=== PATIENT | female | born 1940 | race Caucasian/White ===

== ENCOUNTER 2019-03-09 13:59 | Inpatient (IN) | payer OTHER ==
--- OUTSIDE RECORDS SUMMARY | 2019-03-09 14:01 | XMS REPORT | Clinical Summary ---
:1940 Author Organization [facility] Address [address] [place] [address] Care Team Providers Name Role Phone Unavailable Primary Care Provider Unavailable Allergies Not on File Medications Not on file Active Problems Not on file Social History Tobacco Use Types Packs/Day Years Used Date Never Assessed Sex Assigned at Date Recorded Not on file Job Start Date Occupation Industry Not on file Not on file Not on file Travel History Travel Start Travel End No recent travel history available. Last Filed Vital Signs Not on file Plan of Treatment Not on file Results Not on fileafter 03/08/2018
--- OUTSIDE RECORDS SUMMARY | 2019-03-09 14:04 | XMS REPORT | Continuity of Care Document ---
:1940 Author Organization [facility] [employer] Care Team Providers Name Role Phone Street [employer] Unavailable Unavailable Problems Problem Status Onset Classification Date Comments Source Date Reported SYNCOPE, POSSIBLE Active 10/29/[address] PNEUMONIA, HYPOXIA Active 10/29/[address] Sepsis, 07/29/20 12/03/2018 [facility] unspecified 18 organism LEFT LUNG Active 05/09/20 [facility] COLLAPSE, PNA, 18 [place] CACHEXIA Pneumonia, 12/03/2018 [facility] unspecified organism Pneumonitis due to 12/03/2018 [facility] inhalation of food and vomit Acute respiratory 12/03/2018 [facility] failure with hypoxia Acute respiratory 12/03/2018 [facility] failure with hypercapnia Unspecified severe 12/03/2018 [facility] protein-calorie malnutrition Pneumonia due to 12/03/2018 [facility] Streptococcus pneumoniae Encounter for 12/03/2018 [facility] immunization Do not resuscitate 12/03/2018 [facility] Encounter for 12/03/2018 [facility] palliative care Chronic 12/03/2018 [facility] obstructive pulmonary disease with acute lower respiratory infection Metabolic 12/03/2018 [facility] encephalopathy Chronic 12/03/2018 [facility] obstructive pulmonary disease with exacerbation Cachexia 12/03/2018 [facility] Body mass index 12/03/2018 [facility] 19.9 or less, adult Hyperosmolality 12/03/2018 [facility] and hypernatremia Essential 12/03/2018 [facility] hypertension Other chronic pain 12/03/2018 [facility] Anxiety disorder, 12/03/2018 [facility] unspecified Hypomagnesemia 12/03/2018 [facility] Thrombocytopenia, 12/03/2018 [facility] unspecified Anemia, 12/03/2018 [facility] unspecified Hypokalemia 12/03/2018 [facility] Vascular dementia 12/03/2018 [facility] without behavioral disturbance Alzheimer's 12/03/2018 [facility] disease, unspecified Other diseases of 12/03/2018 [facility] bronchus, not elsewhere classified Dysphasia 12/03/2018 [facility] Adult failure to 12/03/2018 [facility] thrive Personal history 12/03/2018 [facility] of transient ischemic attack , and cerebral infarction without residual deficits Personal history 12/03/2018 [facility] of nicotine dependence History of falling 12/03/2018 [facility] Patient's other 12/03/2018 [facility] noncompliance with medication regimen Alzheimer disease Active Problem 12/03/2018 [facility] Atypical pneumonia Active Problem 12/03/2018 [facility] 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 Center,[facility] Chronic hypoxemic Active Problem 12/03/2018 [facility] respiratory Medical failure Center,[facility] COPD without Active Problem 12/03/2018 [facility] exacerbation Medical [place],[facility] Left arm DVT Active Problem 12/03/2018 [facility] Supplemental Active Problem 12/03/2018 [facility] oxygen dependent Medical Center,[facility] On anticoagulant Active Problem 12/03/2018 [facility] therapy [facility] Fall from bed Active Problem 12/03/2018 [facility] H/O Clostridium Active Problem 12/03/2018 [facility] difficile Medical infection Center,[facility] Hx MRSA infection Active Problem 12/03/2018 [facility] S/P peripheral Active Problem 12/03/2018 [facility] artery angioplasty Medical Center,[facility] HTN (Confirmed) Active Problem 12/03/2018 [facility] Normocytic anemia Active Problem 12/03/2018 [facility] Peripheral Active Problem 12/03/2018 [facility] vascular disease Medical Center,[facility] Severe Active Problem 12/03/2018 [facility] protein-calorie Medical malnutrition Center,[facility] PNEUMONIA, Active [facility] UNSPECIFIED [place], ORGANISM [facility] HYPOXEMIA Active [facility] Medications Medication Details Route Status Patient Ordering Order Source Instructions Provider Date Doxycycline 100 mg=1 tab, Active 10/29/ [place] Monohydrate 100 PO, Q12H, X 7 2019 Medical MG Oral Tablet day, # 14 tab, Center 0 Refill(s), other Sodium Chloride 250 mL, Rate: Inactive 10/29/ [place] 0.9% (titrate) To prime line 2019 Medical 250 mL and flush Center remaining blood products., Dosing Weight 54.091, kg, Route: IV, Total Volume: 250, Start Date: 10/29/18 11:40:00 [employer] CUTTER APPRENTICE, Duration: 1 day, Stop date: 10/30/18 11:39:00 [employer] CUTTER APPRENTICE, Replace Every: 24 hr NIFEdipine 60 mg 60 mg, 1 tab, Inactive [facility] oral tablet, Route: PO, 2019 Medical extended release Drug form: [place] ERTAB, Daily, Dosing Weight 54.4, kg, Start date: 10/29/18 9:00:00 [employer] CUT[employer] APPRENTICE, Duration: 30 day, Stop date: 11/27/18 9:00:00 CDT, ..Notes: (Same as: Adalat CC, Procardia XL) Give on empty stomach. Take 1 hour before or 2 hours after meal; "Avoid grapefruit and grapefruit juice". Do not crush Nystatin 100 1 appl, Route: Inactive [facility] UNT/MG Topical TOP, TID, Drug 2019 Medical Powder form: PWDR, [place] Start date: 10/29/18 9:00:00 MEAT CUTTER APPRENTICE, Duration: 30 day, Stop date: 11/27/18 17:00:00 CDTNotes: (Same as:Mycostatin, Nilstat) For external use only. ascorbic acid 500 mg, 1 tab, Inactive 10/29[facility] Route: PO, 2019 Medical Drug form: [place] TAB, BID, Dosing Weight 54.4, kg, Start date: 10/29/18 9:00:00 MEAT CUTTER APPRENTICE, Duration: 30 day, Stop date: 11/27/18 17:00:00 CDTNotes: (Same as: Vitamin C) Eliquis 5 mg, 1 tab, Inactive 10/29[facility] Route: PO, 2019 Medical Drug form: [place] TAB, BID, Dosing Weight 54.4, kg, Start date: 10/29/18 9:00:00 MEAT CUTTER APPRENTICE, Duration: 30 day, Stop date: 11/27/18 17:00:00 CDTNotes: Same as: Eliquis Doxycycline 100 mg, Route: Inactive [facility] IVPB, [id number], 2019 Medical Dosing Weight [place] 54.091, kg, Start date: 10/29/18 8:00:00 MEAT CUTTER APPRENTICE, Duration: 30 day, Stop date: 11/27/18 20:00:00 CDTNotes: (Same as: Vibramycin) Albuterol 0.833 3 mL, Route: Inactive [facility] MG/ML / INHALATION, 2019 Medical Ipratropium Drug Form: [place] 0.167 SOLN, Dosing MG/ML Inhalant Weight 54.4, Solution kg, RQID, [DuoNeb] Start date: 10/29/18 7:00:00 MEAT CUTTER APPRENTICE, Duration: 30 day, Stop date: 11/27/18 19:00:00 CDTNotes: (Same as: Duoneb) Lasix 40 mg, 4 mL, No Longer [facility] Route: IVP, Active 2019 Medical Drug form: [place] INJ, ONCE, Dosing Weight 54.4, kg, Priority: NOW, Start date: 10/28/18 23:38:00 ME[employer] CUTTER APPRENTICE, Stop date: 10/28/18 23:38:00 CSTNotes: (Same as: Lasix) MEDICATION WASTE Product Size: 40 mg Product Wasted: ___ mg pneumococcal 0.5 mL, Route: No Longer [facility] capsular IM, Drug Form: Active 2019 Medical polysaccharide INJ, ONCALL, [place] type 1 vaccine / Start date: pneumococcal 10/28/18 capsular 22:15:37 [employer] APPRENTICE, polysaccharide Duration: 1 type 10A vaccine doses or / pneumococcal timesNotes: capsular (Same as: polysaccharide Pneumovax 23) type 11A vaccine Refrigerate / pneumococcal capsular polysaccharide type 12F vaccine / pneumococcal capsular polysacchar Furosemide 20 MG 20 mg=1 tab, Active [facility] Oral Tablet PO, BID, # 30 2019 Medical [Lasix] tab, 0 Center Refill(s) apixaban 5 MG 5 mg, PO, BID, Active [facility] Oral Tablet 0 Refill(s) 2019 Medical [Eliquis] [place] zinc sulfate 220 220 mg=1 tab, Active [place] mg oral tablet PO, BID, # 100 2019 Medical tab, 0 Center Refill(s) Ergocalciferol 50,000 Active [facility] [address] UNT Oral IntlUnit=1 2019 Medical Capsule cap, PO, QSat, Center 0 Refill(s) ascorbic acid 500 mg=1 tab, Active [place] 500 mg oral PO, BID, # 30 2019 Medical tablet tab, 0 Center Refill(s) Nystatin 100 1 appl, TOP, Active [place] UNT/MG Topical TID, # 15 gm, 2019 Medical Powder 0 Refill(s) [place] Albuterol 0.833 3 ml, Active [place] MG/ML / INHALATION, 2019 Medical Ipratropium QID, # 30 ea, Center [place] 0.167 0 Refill(s) MG/ML Inhalant Solution [DuoNeb] Nifedipine 20 MG 20 mg=1 cap, Active [place] Oral Capsule PO, TID, # 90 2019 Medical cap, 0 Center Refill(s) Acetaminophen 650 mg, 2 tab, No Longer [place] Route: PO, Active 2019 Medical Drug form: Center TAB, Q4H, Dosing Weight 54.4, kg, PRN For Temp > 100.4 F, Start date: 10/28/18 20:28:00 ME[employer] CUTTER APPRENTICE, Duration: 30 day, Stop date: 11/27/18 20:27:00 CDTNotes: Do not exceed 4 gm/day. (Same as: Tylenol) Dextrose 50% 12.5 gm, 25 No Longer [place] Syringe mL, Route: Active 2019 Medical IVP, Drug Center Form: INJ, Dosing Weight 54.4, kg, PRN, PRN Blood Glucose Results, Start date: 10/28/18 20:28:00 ME[employer] CUTTER APPRENTICE, Duration: 30 day, Stop date: 11/27/18 21:27:00 CDT Glucagon 1 mg, Route: No Longer [place] IM, Drug form: Active 2019 Medical PDR/INJ, PRN, [place] Dosing Weight 54.4, kg, PRN Blood Glucose Results, Start date: 10/28/18 20:28:00 ME[employer] CUTTER APPRENTICE, Duration: 30 day, Stop date: 11/27/18 21:27:00 CDT iodixanol 60 mL, Route: Inactive [place] IVP, Drug 2019 Medical Form: SOLN, [place] Dosing Weight 54.4, kg, ONCALL, STAT, Start date: 10/28/18 17:23:00 ME[employer] CUTTER APPRENTICE, Duration: 1 doses or times, Dose=2.2ml/kg, Max [id number] -- "To be infused by Radiology Staff ONLY" cefepime 1 gm, Route: Inactive [facility] IVPB, ONCE, 2019 Medical Dosing Weight Center 54.4, kg, Priority: STAT, Start date: 10/28/18 14:56:00 MEAT CUTTER APPRENTICE, Stop date: 10/28/18 14:56:00 MEAT CUTTER APPRENTICE, ABX Indication: PneumoniaNotes : (Same As: Maxipime) MEDICATION WASTE Product Size: 1000 mg Product Wasted: 0 mg Vancomycin 1.25 gm, Inactive [facility] Route: IVPB, 2018 Medical ONCE, Dosing Center Weight 54.4, kg, Priority: STAT, Start date: 10/28/18 14:55:00 MEAT CUTTER APPRENTICE, Stop date: 10/28/18 14:55:00 MEAT CUTTER APPRENTICE, ABX Indication: PneumoniaNotes : TIME CRITICAL MEDICATION (Same As: Vancocin) Infusion rate 2001 mg: infuse over 2.5 hours For adult patients only: Round to nearest 250 mg per Medical Staff approval MEDICATION WASTE Product Size: 1000 mg Product Wasted: 0 mg NS (Bolus) IV 1,000 mL, Inactive [facility] 1,000 ml/hr, 2018 Medical Infuse Over: 1 Center hr, Route: IV, 1,000, Drug form: INJ, ONCE, Priority: STAT, Dosing Weight 54.4 kg, Start date: 10/28/18 14:52:00 MEAT CUTTER APPRENTICE, Stop date: 10/28/18 14:52:00 MEAT CUTTER APPRENTICE Magnesium Oxide 800 mg, 2 tab, Inactive Route: PO, 2017 [place] Drug form: TAB, ONCE, Dosing Weight 34.6, kg, Start date: 05/16/18 16:15:00 CDT, Stop date: 05/16/18 16:15:00 CDTNotes: (Same as: Mag-Ox 400) Magnesium oxide [id number] elemental magnesium Dose=____mg magnesium oxide (___mg elemental magnesium) Magnesium 2 gm, 50 mL, Inactive Sulfate Route: IVPB, 2017 [place] Drug form: INJ, Q2H, Dosing Weight 34.6, kg, Total dose=4 gm, Start date: 05/16/18 16:00:00 CDT, Duration: 2 doses or times, Stop date: 05/16/18 18:00:00 CDTNotes: WASTE: F/P - Sink; E - Municipal Trash Bin Potassium 20 mEq, 15 mL, Inactive Chloride 1.33 Route: PO, 2017 [place] MEQ/ML Oral Drug form: Solution LIQ, ONCE, Dosing Weight 34.6, kg, Start date: 05/16/18 15:19:00 CDT, Stop date: 05/16/18 15:19:00 CDTNotes: (Same as: Potassium Chloride) Ceftriaxone 1 gm, Route: No Longer IV, [id number], Active 2017 [place] Dosing Weight 34.6, kg, Start date: 05/15/18 15:00:00 CDT, Duration: 7 day, Stop date: 05/21/18 15:00:00 CDT, ABX Indication: PneumoniaNotes : (Same As: Rocephin). Use with 100 mL NS and infuse over 30 min MEDICATION WASTE Product Size: 1000 mg Product Wasted: ___ mg Kaopectate 524 mg, 2 tab, No Longer Reformulated Aug Route: NG, Active 2017 [place] 2005 Drug Form: CHEWTAB, Dosing Weight 34.6, kg, QID, PRN Diarrhea, Start date: 05/15/18 12:07:00 CDT, Duration: 30 day, Stop date: 06/14/18 12:06:00 CDTNotes: (Same As: Pepto Bismol) Acetaminophen 10 ml, Route: No Longer 33.3 MG/ML / NG, Drug Form: Active 2017 [place] Hydrocodone SOLN, Dosing Bitartrate 0.5 Weight 34.6, MG/ML Oral kg, Q4H, PRN Solution Pain Score 4-6, Start date: 05/15/18 10:48:00 CDT, Duration: 30 day, Stop date: 06/14/18 10:47:00 CDTNotes: Do not exceed 4gm/day of acetaminophen. (Same as: [place] 325/7.5) Flagyl 500 mg, 1 tab, No Longer Route: PO, Active 2017 [place] Drug form: TAB, ABXQ8H, Start date: 05/14/18 16:00:00 CDT, Duration: 2 day, Stop date: 05/16/18 8:00:00 CDT, ABX Indication: Intra-abdomina l InfectionNotes : (Same as: Flagyl) Take with food/ avoid alcohol carvedilol 25 mg, 2 tab, No Longer Route: PO, Active 2017 [place] Drug form: TAB, Q12H, Dosing Weight 34.6, kg, Start date: 05/13/18 9:00:00 CDT, Duration: 30 day, Stop date: 06/11/18 21:00:00 CDTNotes: Give with food. (Same As: Coreg) Amlodipine 10 mg, 2 tab, No Longer Route: PO, Active 2017 [place] Drug form: TAB, Daily, Dosing Weight 34.6, kg, Start date: 05/13/18 9:00:00 CDT, Duration: 30 day, Stop date: 06/11/18 9:00:00 CDTNotes: (Same as: Norvasc) carvedilol 6.25 mg, 2 No Longer tab, Route: Active 2017 [place] PO, Drug form: TAB, Q12H, Dosing Weight 34.6, kg, Start date: 05/12/18 19:00:00 CDT, Duration: 30 day, Stop date: 06/11/18 9:00:00 CDTNotes: Give with food. (Same As: Coreg) Nicardipine 40 mg, 200 mL, No Longer Rate: Titrate, Active 2017 [place] Start Dose: 5 mg/hr, Titration: 2.5 mg/hr every 15 minutes, Goal(s): SBP 100-150, Max Dose: 15 mg/hr, Route: IV, Dosing Weight 34.6 kg, Total Volume: 200, Start date: 05/12/18 10:32:00 CDT, Duration: 30 day, Stop date: ...Notes: Same as: Cardene Concentration: (0.2 mg /1 ml ) Tylenol 650 mg, 1 No Longer supp, Route: Active 2017 [place], Drug form: SUPP, Q6H, Dosing Weight 34.6, kg, PRN For Temp > 100.4 F, Start date: 05/11/18 16:33:00 CDT, Duration: 30 day, Stop date: 06/10/18 16:32:00 CDTNotes: Max acetaminophen= 4000 mg/day (4 gm/day). (Same as: Tylenol) cefepime 1 gm, Route: No Longer IVPB, [id number], Active 2017 [place] Dosing Weight 34.6, kg, (CrCl 10 - 29 ml/min), Start date: 05/11/18 2:00:00 CDT, Duration: 6 day, Stop date: 05/16/18 2:00:00 CDT, ABX Indication: PneumoniaNotes : (Same As: Maxipime) MEDICATION WASTE Product Size: 1000 mg Product Wasted: ___ mg Dextrose 5% with 1,000 mL, No Longer 0.45% NaCl IV Rate: 100 Active 2017 [place] 1,000 mL ml/hr, Infuse over: 10 hr, Route: IV, Dosing Weight 34.6 kg, Total Volume: 1,000, Start date: 05/10/18 21:30:00 CDT, Duration: 30 day, Stop date: 06/09/18 21:29:00 CDT, 1.22, m2 esmolol 2,500 mg, 250 No Longer mL, Rate: Active 2017 [place] Titrate, Start Dose: 50 microgram/kg/m in, Titration: 50 microgram/kg/m in every 15 minutes, Goal(s): Maintain SBP between 100-150 mmHg, Max Dose: 300 microgram/kg/m in, Route: IV, Dosing Weight 34.6 kg, Total Volume: 250, Start d...Notes: (Same as: Brevibloc) 10 mg/ml conc. Vancomycin 1 ea, Route: No Longer MISC, Drug Active 2017 [place] form: INJ, ONCALL, Dosing Weight 34.6, kg, Start date: 05/10/18 9:00:00 CDT, Duration: 7 day, Stop date: 05/17/18 8:59:00 CDT, Pharmacy to dose, ABX Indication: PneumoniaNotes : TIME CRITICAL MEDICATION (Same As: Vancocin) Infusion rate 2001 mg: infuse over 2.5 hours For adult patients only: Round to nearest 250 mg per Medical Staff approval MEDICATION WASTE Product Size: 1000 mg Product Wasted: ___ mg Labetalol 10 mg, 2 mL, Inactive Route: IV, 2017 [place] Drug form: INJ, ONCE, Dosing Weight 34.6, kg, Start date: 05/10/18 8:35:00 CDT, Stop date: 05/10/18 8:35:00 CDTNotes: (Same as: Normodyne, Trandate) Push over 2 minutes Give bolus over 2-3 minutes. Vancomycin 750 mg, Route: No Longer IVPB, [id number], Active 2017 [place] Dosing Weight 34.6, kg, Start date: 05/10/18 4:00:00 CDT, Duration: 7 day, Stop date: 05/17/18 4:00:00 CDT, ABX Indication: PneumoniaNotes : TIME CRITICAL MEDICATION (Same As: Vancocin) Infusion rate 2001 mg: infuse over 2.5 hours For adult patients only: Round to nearest 250 mg per Medical Staff approval MEDICATION WASTE Product Size: 1000 mg Product Wasted: ___ mg Flagyl 500 mg, 100 No Longer mL, Route: Active 2017 [place] IVPB, Drug form: INJ, ABXQ8H, Dosing Weight 34.6, kg, Start date: 05/10/18 0:00:00 CDT, Duration: 7 day, Stop date: 05/16/18 16:00:00 CDT, ABX Indication: Intra-abdomina l InfectionNotes : (Same as: Flagyl) Avoid alcohol. cefepime 1 gm, Route: Inactive IVPB, ABXQ8H, 2018 [place] Dosing Weight 34.6, kg, (CrCl >/=50 ml/min), Start date: 05/10/18 0:00:00 CDT, Duration: 7 day, Stop date: 05/16/18 16:00:00 CDT, ABX Indication: PneumoniaNotes : (Same As: Maxipime) MEDICATION WASTE Product Size: 1000 mg Product Wasted: ___ mg heparin 5,000 unit, 1 No Longer mL, Route: Active 2018 [place] SUB-Q, Drug form: INJ, Q8H, Dosing Weight 34.6, kg, Start date: 05/10/18 0:00:00 CDT, Stop date: 06/08/18 16:00:00 CDTNotes: porcine heparin Potassium 20 mEq, 15 mL, No Longer Chloride Route: [place], Active 2018 [place] Drug form: LIQ, PRN, Dosing Weight 34.6, kg, PRN Abnormal Lab Result, Start date: 05/09/18 23:48:00 CDT, Duration: 30 day, Stop date: 06/08/18 23:47:00 CDT, FOR ICU USE ONLYNotes: (Same as: Potassium Chloride) Calcium 1,000 mg, 2 No Longer Carbonate 500 MG tab, Route: Active 2018 [place] Chewable Tablet PO, Drug form: CHEWTAB, PRN, Dosing Weight 34.6, kg, PRN Abnormal Lab Result, FOR ICU USE ONLY, Start date: 05/09/18 23:48:00 CDT, Duration: 30 day, Stop date: 06/08/18 23:47:00 CDTNotes: (Same As: Tums) Calcium Carbonate 500 ur=265 mg elemental calcium Dose= mg calcium carbonate ( mg elemental calcium) potassium 30 mmol, 10 No Longer phosphate mL, Route: Active 2018 [place] IVPB, PRN, Dosing Weight 34.6, kg, PRN Abnormal Lab Result, Start date: 05/09/18 23:48:00 CDT, Duration: 30 day, Stop date: 06/08/18 23:47:00 CDT, FOR ICU USE ONLYNotes: (Same as: K Phosphate.) Do not infuse phosphorous concurrently in the same line as TPN or IVF that contains calcium. For double lumen central lines, phosphorous may be infused in a separate lumen from TPN. 1 mMol phoshate has 1.47 mEq potassium Infuse over 4 hours sodium phosphate 45 mmol, 15 No Longer mL, Route: Active 2018 [place] IVPB, PRN, Dosing Weight 34.6, kg, PRN Abnormal Lab Result, Start date: 05/09/18 23:48:00 CDT, Duration: 30 day, Stop date: 06/08/18 23:47:00 CDT, FOR ICU USE ONLYNotes: Infuse over 4 hour. Do not infuse phosphorous concurrently in the same line as TPN or IVF that contains calcium. For double lumen central lines, phosphorous may be infused in a separate lumen from TPN. Magnesium Oxide 800 mg, 2 tab, No Longer Route: PO, Active 2018 [place] Drug form: TAB, PRN, Dosing Weight 34.6, kg, PRN Abnormal Lab Result, FOR ICU USE ONLY, Start date: 05/09/18 23:48:00 CDT, Duration: 30 day, Stop date: 06/08/18 23:47:00 CDTNotes: (Same as: Mag-Ox 400) Magnesium oxide [id number] elemental magnesium Dose=____mg magnesium oxide (___mg elemental magnesium) Magnesium 2 gm, 50 mL, No Longer Sulfate Route: IVPB, Active 2018 [place] Drug form: INJ, PRN, Dosing Weight 34.6, kg, PRN Abnormal Lab Result, Start date: 05/09/18 23:48:00 CDT, Duration: 30 day, Stop date: 06/08/18 23:47:00 CDT, FOR ICU USE ONLYNotes: WASTE: F/P - Sink; E - Municipal Trash Bin potassium 2 pkt, Route: No Longer phosphate-sodium PO, Drug Form: Active 2018 [place] phosphate 250 PDR/REC, mg-280 mg-160 mg Dosing Weight oral powder for 34.6, kg, PRN, reconstitution PRN Abnormal Lab Result, FOR ICU USE ONLY, Start date: 05/09/18 23:48:00 CDT, Duration: 30 day, Stop date: 06/08/18 23:47:00 CDTNotes: (Same as: Phos-NaK) Each 1.5 gm pkt has 250mg phosphorous. Mix w/2.5oz water and stir. Calcium 1 gm, 10 mL, No Longer Gluconate Route: IVPB, Active 2018 [place] PRN, Dosing Weight 34.6, kg, PRN Abnormal Lab Result, Start date: 05/09/18 23:48:00 CDT, Duration: 30 day, Stop date: 06/08/18 23:47:00 CDT, FOR ICU USE ONLYNotes: WASTE: F/P - Sink; E - Municipal Trash Bin Saline Flush 10 ml, Route: No Longer 0.9% IVP, Drug Active 2017 [place] Form: INJ, Dosing Weight 34.6, kg, PRN, PRN Line Flush, Start date: 05/09/18 23:42:00 CDT, Duration: 30 day, Stop date: 06/08/18 23:41:00 CDTNotes: (Same as: BD Posiflush) Lactated [place]ers 1,000 mL, No Longer IV 1,000 mL Rate: 75 Active 2017 [place] ml/hr, Infuse over: 13.3 hr, Route: IV, Dosing Weight 34.6 kg, Total Volume: 1,000, Start date: 05/09/18 23:42:00 CDT, Duration: 30 day, Stop date: 06/08/18 23:41:00 CDT, 1.22, m2 Acetaminophen 650 mg, 2 tab, No Longer Route: PO, Active 2017 [place] Drug form: TAB, Q6H, Dosing Weight 34.6, kg, PRN Pain 1-3/Temp > 100.4 F, Start date: 05/09/18 23:42:00 CDT, Duration: 30 day, Stop date: 06/08/18 23:41:00 CDTNotes: Do not exceed 4 gm/day. (Same as: Tylenol) Ondansetron 4 mg, 2 mL, No Longer Route: IVP, Active 2017 [place] Drug form: INJ, Q6H, Dosing Weight 34.6, kg, PRN Nausea & Vomiting, Start date: 05/09/18 23:42:00 CDT, Duration: 30 day, Stop date: 06/08/18 23:41:00 CDTNotes: (Same as: Zofran) MEDICATION WASTE Product Size: 4 mg Product Wasted: ___ mg Morphine 2 mg, 1 mL, No Longer Route: IVP, Active 2017 [place] Drug form: SOLN, Q4H, Dosing Weight 34.6, kg, PRN Pain Score 7-10, Start date: 05/09/18 23:42:00 CDT, Duration: 30 day, Stop date: 06/08/18 23:41:00 CDT Vancomycin 1 gm, IV, No Longer Q24H, 0 Active 2017 [place] Refill(s) Acetaminophen 1 tab, PO, No Longer 300 MG / Codeine Q6H, PRN Pain, Active 2017 [place] Phosphate 30 MG 0 Refill(s) Oral Tablet [Tylenol with Codeine #3] Azithromycin 500 mg, IV, No Longer Daily, 0 Active 2017 [place] Refill(s) Rocephin 1 gm, IV, No Longer Daily, 0 Active 2017 [place] Refill(s) donepezil 5 mg 10 mg=2 tab, No Longer oral tablet PO, Bedtime, 0 Active 2017 [place] Refill(s) Clonidine 0.1 mg=1 tab, No Longer Hydrochloride PO, BID, 0 Active 2017 [place] 0.1 MG Oral Refill(s) Tablet Clonazepam 1 mg, PO, TID, No Longer 0 Refill(s) Active 2018 [place] benzonatate 100 200 mg=2 cap, No Longer mg oral capsule PO, TID, PRN Active 2017 [place] Cough, 0 Refill(s) Albuterol 0.83 2.5 mg=3 mL, No Longer MG/ML Inhalant NEB, Q6H, 0 Active 2017 [place] Solution Refill(s) Acetaminophen 650 mg, PO, No Longer Q6H, PRN Active 2018 [place] Pain/Fever, 0 Refill(s) Allergies, Adverse Reactions, Alerts Substance Category Reaction Severity Reaction Status Date Comments Source type Reported unk Assertion Drug Active allergy [place] Immunizations Immunization Date Site Status Last Updated Comments Source Given influenza virus Left Thigh completed [facility] [place] vaccine, 8 Medical inactivated [facility] pneumococcal Right completed [facility] 13-valent Deltoid [facility] vaccine [place],[facility] Results Order Name Results Value Reference Date Interpretation Comments Source Range BLOOD BANK Antibody Negative 10/29 [facility] RESULTS Scrn (10/29/18 11:57 AM) [facility] BLOOD BANK ABO/Rh A NEG 10/29 [facility] RESULTS [facility] HEMATOLOGY Hct 22.1 36.0 - 10/29 [facility] 48.0 [facility] HEMATOLOGY Hgb 7.2 12.0 - 10/29 [facility] 16.0 [facility] CARDIAC BNP 210 <=100 10/29 [facility] ENZYMES pg/mL /2018 [facility] ELECTROLYTE AGAP 13.3 10.0 - 10/29 [facility] 20.0 [facility] ELECTROLYTE Calcium Lvl 7.2 8.5 - 10.5 10/[address] ELECTROLYTE CO2 22 24 - 32 10/[address] ELECTROLYTE Glucose Lvl 87 70 - 99 10/[address] ELECTROLYTE Chloride Lvl 116 95 - 109 10/[address] ELECTROLYTE Potassium 3.3 3.5 - 5.1 10/29 [facility]2018 [facility] ELECTROLYTE Sodium Lvl 148 135 - 145 10/[address] ELECTROLYTE Creatinine 0.85 0.50 - 10/29 [facility] Lvl 1.40 [facility] ELECTROLYTE BUN 28 7 - 22 10/[address] ELECTROLYTE eGFR 67 10/29 [facility] Comment: The Medical eGFR is Center calculated using the CKD-EPI formula. In most young, healthy individuals the eGFR will be >90 mL/min/1.73m2 . The eGFR declines with age. An eGFR of 60-89 may be normal in some populations, particularly the elderly, for whom the CKD-EPI formula has not been extensively validated. Use of the eGFR is not recommended in the following populations:< br/>
Linda viduals with unstable creatinine concentration s, including patients and those with serious co-morbid conditions.<b r/>
Patie nts with extremes in muscle mass or diet.

The data above are obtained from the National Kidney Disease Education Program (NKDEP) which additionally recommends that when the eGFR is used in patients with extremes of body mass index for purposes of drug dosing, the eGFR should be multiplied by the estimated BMI. HEMATOLOGY WBC 7.7 3.7 - 10.4 03 [facility] HEMATOLOGY RBC 2.31 4.20 - 10/29 [place] 5.40 /2019 [facility] HEMATOLOGY Hgb 6.8 12.0 - 10/29 Result [facility] 16.0 Comment: Medical Critical Center Result(s) called to GLENDY Serra at 09:05 by [place]. Read back OK. HEMATOLOGY MCV 92.1 80.0 - 10/29 [place] 98.0 /2019 [facility] HEMATOLOGY Hct 21.3 36.0 - 03 [place] 48.0 /2019 [facility] HEMATOLOGY MCH 29.4 27.0 - 03 [place] 31.0 /2019 [facility] HEMATOLOGY Platelet 355 133 - 450 10/29 [facility] HEMATOLOGY MPV 7.2 7.4 - 10.4 10/29 [facility] HEMATOLOGY MCHC 31.9 32.0 - 10/29 [place] 36.0 2019 [facility] HEMATOLOGY RDW 17.8 11.5 - 10/29 [place] 14.5 2019 [facility] HEMATOLOGY Plt Morph Normal 10/29 [facility] (10/29/18 8:19 AM) [facility] HEMATOLOGY Tot Cell Ct 100 10/29 [facility] /2018 [facility] HEMATOLOGY Anisocyte 1+ None Seen 10/29 [facility] [place] [facility] (10/29/18 8:19 AM) [place] HEMATOLOGY Bands 0.0 0.0 - 11.0 10/[address] [place] [address] HEMATOLOGY Lymphocytes 18.0 20.0 - 10/29 [place] 40.0 2019 [facility] HEMATOLOGY Monocytes 8.0 2.0 - 12.0 10/29 [facility]2018 [facility] HEMATOLOGY Macrocyte 1+ None Seen 10/29 [facility] (10/29/18 8:19 AM) Center HEMATOLOGY Microcyte 1+ None Seen 10/29 [facility] (10/29/18 8:19 AM) Center HEMATOLOGY Hypochrom 1+ None Seen 10/29 [facility] (10/29/18 8:19 AM) /2018 [facility] HEMATOLOGY Polychrom Moderate None Seen 10/29 [facility] (10/29/18 8:19 AM) Center HEMATOLOGY Atypical 0.0 <=0.0 % 10/29 [facility] Lymphs /2018 [facility] HEMATOLOGY Eosinophils 4.0 0.0 - 4.0 10/29 [facility] /[address] [place] [address] HEMATOLOGY Segs 70.0 45.0 - 10/29 [place] 75.0 [facility] HEMATOLOGY Monocytes # 0.6 0.0 - 0.8 10/29 [facility] /[address] [place] [address] HEMATOLOGY Lymphocytes 1.4 1.0 - 5.5 10/29 [facility] /2019 [facility] HEMATOLOGY Neutrophils 5.4 1.5 - 8.1 10/29 [facility] /2018 [facility] HEMATOLOGY Eosinophils 0.3 0.0 - 0.5 10/29 [facility] /2019 [facility] CHEM PANEL Procalcitoni 0.26 0.00 - 10/29 [facility] n Lvl 0.10 [facility] HEMATOLOGY Sed Rate 95 0 - 20 10/[address] IMMUNOLOGY C-REACTIVE 99.9 <=2.9 mg/L 10/29 [facility] PROTEIN [facility] URINE AND UA <=1.0 0.1 - 1.0 10/29 [facility] STOOL Urobilinogen mg/dL [facility] URINE AND UA Sq Epi None Seen 10/29 [facility] STOOL [facility] URINE AND UA [place] Yeast Occasional None Seen 10/29 [facility] STOOL /HPF /HPF /2018 [facility] URINE AND UA Bacteria Occasional None Seen 10/29 [facility] STOOL /HPF /HPF /2018 [facility] URINE AND UA WBC <1 0 - 5 10/29 [facility] [address] [place] [address] URINE AND UA Blood Negative Negative 10/29 [facility] (10/28/18 10:53 PM) [facility] URINE AND UA Bili Negative Negative 10/29 [facility] STOOL *NA* /2018 [facility] (10/28/18 10:53 PM) [place] URINE AND UA Ketones Negative Negative 10/29 [facility] STOOL mg/dL mg/dL [facility] URINE AND UA Leuk Est Negative Negative 10/29 [facility] (10/28/18 10:53 PM) [facility] URINE AND UA Nitrite Negative Negative 10/29 [facility] (10/28/18 10:53 PM) [facility] URINE AND UA Glucose Negative Negative 10/29 [facility] STOOL mg/dL mg/dL [facility] URINE AND UA Protein Negative Negative 10/29 [facility] STOOL mg/dL mg/dL [facility] URINE AND UA pH 5.0 5.0 - 8.0 10/29 [facility] URINE AND UA Spec Grav 1.023 <=1.030 10/29 [facility] URINE AND UA Color Yellow Yellow 10/29 [facility] STOOL *NA* [facility] (10/28/18 10:53 PM) [place] URINE AND UA Turbidity Clear Clear 10/29 [facility] STOOL (10/28/18 10:53 PM) [facility] CHEM PANEL Lactic Acid 1.7 0.5 - 2.2 10/29 [facility] Lvl [facility] LIPIDS VLDL 33 10/28 [facility] LIPIDS LDL 91 <=99 mg/dL 10/28 [facility] (Calculated) [facility] LIPIDS HDL 45 >=61 mg/dL 10/28 [facility] LIPIDS Chol 169 <=199 10/28 [facility] mg/dL [facility] LIPIDS Trig 165 <=149 10/28 [facility] mg/dL [facility] LIPIDS CHD Risk 3.76 3.90 - 10/28 [facility] 5.80 [facility] SPECIAL Hgb A1C 4.9 <=5.6 % 10/28 [facility] CHEMISTRY [address] [place] [address] CARDIAC Troponin-I 0.02 0.00 - 10/28 [facility] ENZYMES 0.40 [facility] CHEM PANEL eGFR 59 10/28 [facility] Comment: The [facility] eGFR is Center calculated using the CKD-EPI formula. In most young, healthy individuals the eGFR will be >90 mL/min/1.73m2 . The eGFR declines with age. An eGFR of 60-89 may be normal in some populations, particularly the elderly, for whom the CKD-EPI formula has not been extensively validated. Use of the eGFR is not recommended in the following populations:< br/>
Linda viduals with unstable creatinine concentration s, including patients and those with serious co-morbid conditions.<b r/>
Patie nts with extremes in muscle mass or diet.

The data above are obtained from the National Kidney Disease Education Program (NKDEP) which additionally recommends that when the eGFR is used in patients with extremes of body mass index for purposes of drug dosing, the eGFR should be multiplied by the estimated BMI. CHEM PANEL Glucose Lvl 113 70 - 99 10/28 MH [facility] CHEM PANEL Calcium Lvl 8.0 8.5 - 10.5 03/ [facility] CHEM PANEL Sodium Lvl 147 135 - 145 03/ [facility]2018 [facility] CHEM PANEL Creatinine 0.94 0.50 - 03/ [facility] Lvl 1.40 /2018 [facility] CHEM PANEL BUN 36 7 - 22 03/ [address] CHEM PANEL Potassium 3.7 3.5 - 5.1 03/ [facility] Lvl /2018 [facility] CHEM PANEL CO2 20 24 - 32 03/ [facility]2018 [facility] CHEM PANEL Chloride Lvl 113 95 - 109 03/ [facility]2018 [facility] CHEM PANEL AGAP 17.7 10.0 - 03/ [facility] 20.0 /2019 [facility] HEMATOLOGY Hct 27.2 36.0 - 03/ [facility] 48.0 /2019 [facility] HEMATOLOGY MCV 93.3 80.0 - 10/28 [facility] 98.0 /2019 [facility] HEMATOLOGY MCHC 30.8 32.0 - 03 [facility] 36.0 /2019 [facility] HEMATOLOGY MCH 28.8 27.0 - 03/ [facility] 31.0 /2019 [facility] HEMATOLOGY Platelet 355 133 - 450 03/ [facility] HEMATOLOGY MPV 7.0 7.4 - 10.4 03/ [facility] HEMATOLOGY RDW 17.0 11.5 - 03/ [facility] 14.5 /2019 [facility] HEMATOLOGY WBC 11.4 3.7 - 10.4 03/ [address] HEMATOLOGY Hgb 8.4 12.0 - 03/ [facility] 16.0 /2019 [facility] HEMATOLOGY RBC 2.91 4.20 - 03/ [facility] 5.40 /2019 [facility] HEMATOLOGY INR 1.61 0.85 - 03 [facility] 1.17 /2019 [facility] HEMATOLOGY PT 18.8 12.0 - 03/ [facility] 14.7 /2019 [facility] HEMATOLOGY PTT 38.6 22.9 - 03/ [facility] 35.8 /2019 [facility] HEMATOLOGY Monocytes # 0.8 0.0 - 0.8 03/ [facility]2018 [facility] HEMATOLOGY Eosinophils 0.1 0.0 - 0.5 03/ [facility] # /2019 [facility] HEMATOLOGY Polychrom Slight 03/ [facility]2018 [facility] HEMATOLOGY Lymphocytes 1.5 1.0 - 5.5 03/02 [facility] # /2018 [facility] HEMATOLOGY Neutrophils 9.0 1.5 - 8.1 10/28 [facility] # [facility] HEMATOLOGY Eosinophils 0.9 0.0 - 4.0 10/28 [facility] HEMATOLOGY Basophils 0.4 0.0 - 1.0 10/28 [facility] HEMATOLOGY Plt Morph Normal 10/28 [facility] (10/28/18 12:50 PM) [facility] HEMATOLOGY Segs 78.9 45.0 - 10/28 [place] 75.0 [facility] HEMATOLOGY Monocytes 7.1 2.0 - 12.0 10/28 [facility] HEMATOLOGY Lymphocytes 12.7 20.0 - 10/28 [facility] 40.0 [facility] CHEM PANEL Magnesium 1.5 1.8 - 2.4 05/16 Lvl /2017 [place] ELECTROLYTE Sodium Lvl 135 135 - 145 05/16 S [place] ELECTROLYTE Potassium 3.3 3.5 - 5.1 05/16 S Lv [place] ELECTROLYTE BUN 9 7 - 22 05/16 S [place] ELECTROLYTE Creatinine 0.34 0.50 - 05/16 S Lvl 1.40 [place] ELECTROLYTE Glucose Lvl 110 70 - 99 05/16 [place] ELECTROLYTE eGFR 108 05/16 [facility] Comment: The [place] eGFR is calculated using the CKD-EPI formula. In most young, healthy individuals the eGFR will be >90 mL/min/1.73m2 . The eGFR declines with age. An eGFR of 60-89 may be normal in some populations, particularly the elderly, for whom the CKD-EPI formula has not been extensively validated. Use of the eGFR is not recommended in the following populations:< br/>
Linda viduals with unstable creatinine concentration s, including patients and those with serious co-morbid conditions.<b r/>
Patie nts with extremes in muscle mass or diet.

The data above are obtained from the National Kidney Disease Education Program (NKDEP) which additionally recommends that when the eGFR is used in patients with extremes of body mass index for purposes of drug dosing, the eGFR should be multiplied by the estimated BMI. ELECTROLYTE Calcium Lvl 8.2 8.5 - 10.5 05/16 MH S /2017 [place] ELECTROLYTE AGAP 10.3 10.0 - 05/16 MH S 20.0 /2018 [place] ELECTROLYTE Chloride Lvl 93 95 - 109 05/16 MH S /2017 [place] ELECTROLYTE CO2 35 24 - 32 05/16 MH S /2017 [place] Culture: Normal Enteric Carley Isolated 05/15 Stool No Salmonella Or Shigella Isolated [place] No Campylobacter Isolated ELECTROLYTE Potassium 4.0 3.5 - 5.1 05/14 MH S Lvl [place] ELECTROLYTE Potassium 2.9 3.5 - 5.1 05/14 Result MH S Lvl Comment: [place] Critical Result(s) called to BETH carvajal 05/13/2018 23:23_ by_pb. Read back OK. CHEM PANEL ALT 9 0 - 65 05/13 [place] CHEM PANEL AST 21 0 - 37 05/13 [place] CHEM PANEL eGFR 101 05/13 Result Comment: The [place] eGFR is calculated using the CKD-EPI formula. In most young, healthy individuals the eGFR will be >90 mL/min/1.73m2 . The eGFR declines with age. An eGFR of 60-89 may be normal in some populations, particularly the elderly, for whom the CKD-EPI formula has not been extensively validated. Use of the eGFR is not recommended in the following populations:< br/>
Linda viduals with unstable creatinine concentration s, including patients and those with serious co-morbid conditions.<b r/>
Patie nts with extremes in muscle mass or diet.

The data above are obtained from the National Kidney Disease Education Program (NKDEP) which additionally recommends that when the eGFR is used in patients with extremes of body mass index for purposes of drug dosing, the eGFR should be multiplied by the estimated BMI. CHEM PANEL Bili Total 0.3 0.2 - 1.3 05/13 [place] CHEM PANEL Alk Phos 63 39 - 136 05/13 [place] CHEM PANEL Albumin Lvl 1.9 3.5 - 5.0 05/13 [place] CHEM PANEL Total 6.1 6.4 - 8.4 05/13 Protein [place] CHEM PANEL Calcium Lvl 7.5 8.5 - 10.5 05/13 [place] CHEM PANEL CO2 27 24 - 32 05/13 [place] CHEM PANEL Creatinine 0.42 0.50 - 05/13 MH Lvl 1.40 /2017 [place] CHEM PANEL Chloride Lvl 101 95 - 109 05/13 [place] CHEM PANEL Sodium Lvl 135 135 - 145 05/13 [place] CHEM PANEL Glucose Lvl 111 70 - 99 05/13 [place] CHEM PANEL BUN 3 7 - 22 05/13 [place] CHEM PANEL Globulin 4.2 2.7 - 4.2 05/13 [place] CHEM PANEL B/C Ratio 7 6 - 25 05/13 [place] CHEM PANEL A/G Ratio 0.5 0.7 - 1.6 05/13 [place] CHEM PANEL AGAP 10.4 10.0 - 05/13 MH 20.0 [place] HEMATOLOGY Lymphocytes 18.7 20.0 - 05/13 MH 40.0 [place] HEMATOLOGY Monocytes 14.4 2.0 - 12.0 05/13 [place] HEMATOLOGY Basophils 0.3 0.0 - 1.0 05/13 [place] HEMATOLOGY Eosinophils 0.7 0.0 - 4.0 05/13 [place] HEMATOLOGY Monocytes # 1.1 0.0 - 0.8 05/13 [place] HEMATOLOGY Neutrophils 5.0 1.5 - 8.1 05/13 MH # /2017 [place] HEMATOLOGY Lymphocytes 1.4 1.0 - 5.5 05/13 MH # /2017 [place] HEMATOLOGY Eosinophils 0.1 0.0 - 0.5 05/13 MH # /2017 [place] HEMATOLOGY Segs 65.9 45.0 - 05/13 MH 75.0 [place] HEMATOLOGY MPV 8.3 7.4 - 10.4 05/13 [place] HEMATOLOGY RDW 16.1 11.5 - 05/13 MH 14. [place] HEMATOLOGY Platelet 110 133 - 450 05/13 [place] HEMATOLOGY Hct 32.9 36.0 - 05/13 MH 48.0 [place] HEMATOLOGY MCH 32.6 27.0 - 05/13 MH 31.0 [place] HEMATOLOGY Hgb 10.8 12.0 - 05/13 MH 16.0 [place] HEMATOLOGY MCV 99.3 80.0 - 05/13 MH 98.0 /2017 [place] HEMATOLOGY WBC 7.6 3.7 - 10.4 05/13 [place] HEMATOLOGY MCHC 32.8 32.0 - 05/13 MH 36.0 [place] HEMATOLOGY RBC 3.32 4.20 - 05/13 MH 5.40 /2017 [place] TOXICOLOGY Vanco Tr TND 03:30 05/13 [place] TOXICOLOGY Vanco Tr 9.4 05/13 [place] CHEM PANEL Bili Total 0.2 0.2 - 1.3 05/12 [place] CHEM PANEL eGFR 92 05/12 Result Comment: The [place] eGFR is calculated using the CKD-EPI formula. In most young, healthy individuals the eGFR will be >90 mL/min/1.73m2 . The eGFR declines with age. An eGFR of 60-89 may be normal in some populations, particularly the elderly, for whom the CKD-EPI formula has not been extensively validated. Use of the eGFR is not recommended in the following populations:< br/>
Linda viduals with unstable creatinine concentration s, including patients and those with serious co-morbid conditions.<b r/>
Patie nts with extremes in muscle mass or diet.

The data above are obtained from the National Kidney Disease Education Program (NKDEP) which additionally recommends that when the eGFR is used in patients with extremes of body mass index for purposes of drug dosing, the eGFR should be multiplied by the estimated BMI. CHEM PANEL Chloride Lvl 107 95 - 109 05/12 [place] CHEM PANEL Sodium Lvl 141 135 - 145 05/12 [place] CHEM PANEL CO2 25 24 - 32 05/12 [place] CHEM PANEL Creatinine 0.54 0.50 - 05/12 MH Lvl 1.40 [place] CHEM PANEL BUN 6 7 - 22 05/12 [place] CHEM PANEL Glucose Lvl 144 70 - 99 05/12 [place] CHEM PANEL B/C Ratio 11 6 - 25 05/12 [place] CHEM PANEL Calcium Lvl 7.3 8.5 - 10.5 05/12 [place] CHEM PANEL AGAP 12.0 10.0 - 05/12 MH 20.0 /2018 [place] CHEM PANEL Alk Phos 68 39 - 136 05/12 [place] CHEM PANEL AST 18 0 - 37 05/12 [place] CHEM PANEL ALT 10 0 - 65 05/12 [place] CHEM PANEL A/G Ratio 0.4 0.7 - 1.6 05/12 [place] CHEM PANEL Globulin 4.3 2.7 - 4.2 05/12 [place] CHEM PANEL Albumin Lvl 1.8 3.5 - 5.0 09 MH /2017 [place] CHEM PANEL Total 6.1 6.4 - 8.4 05/12 MH [place] HEMATOLOGY WBC 11.5 3.7 - 10.4 05/12 [place] HEMATOLOGY MCHC 33.5 32.0 - 05/12 MH 36.0 [place] HEMATOLOGY RDW 16.4 11.5 - 05/12 MH 14. [place] HEMATOLOGY MCH 32.9 27.0 - 05/12 MH 31.0 [place] HEMATOLOGY Hct 28.6 36.0 - 05/12 MH 48.0 [place] HEMATOLOGY MCV 98.2 80.0 - 05/12 MH 98.0 [place] HEMATOLOGY Hgb 9.6 12.0 - 05/12 MH 16.0 [place] HEMATOLOGY RBC 2.91 4.20 - 05/12 MH 5.40 [place] HEMATOLOGY Platelet 107 133 - 450 05/12 [place] HEMATOLOGY MPV 8.5 7.4 - 10.4 05/12 [place] HEMATOLOGY Lymphocytes 1.2 1.0 - 5.5 05/12 MH # /2017 [place] HEMATOLOGY Monocytes # 1.4 0.0 - 0.8 05/12 [place] HEMATOLOGY Eosinophils 0.3 0.0 - 4.0 05/12 [place] HEMATOLOGY Monocytes 12.2 2.0 - 12.0 05/12 [place] HEMATOLOGY Neutrophils 8.9 1.5 - 8.1 05/12 MH # [place] HEMATOLOGY Basophils 0.1 0.0 - 1.0 05/12 [place] HEMATOLOGY Lymphocytes 10.1 20.0 - 05/12 MH 40.0 [place] HEMATOLOGY Segs 77.3 45.0 - 05/12 MH 75.0 [place] CHEM PANEL Albumin Lvl 2.2 3.5 - 5.0 09 /2017 [place] CHEM PANEL Total 6.8 6.4 - 8.4 05/11 MH /2017 [place] CHEM PANEL AST 16 0 - 37 05/11 [place] CHEM PANEL Bili Total 0.4 0.2 - 1.3 05/11 [place] CHEM PANEL ALT 9 0 - 65 05/11 [place] CHEM PANEL Alk Phos 81 39 - 136 05/11 [place] CHEM PANEL A/G Ratio 0.5 0.7 - 1.6 09 [place] CHEM PANEL Globulin 4.6 2.7 - 4.2 05/11 [place] CHEM PANEL B/C Ratio 22 6 - 25 05/11 [place] CHEM PANEL Magnesium 2.7 1.8 - 2.4 05/11 Lvl /2017 [place] HEMATOLOGY MCHC 31.9 32.0 - 05/11 MH 36.0 [place] HEMATOLOGY MCH 32.3 27.0 - 09 MH 31.0 [place] HEMATOLOGY RDW 16.3 11.5 - 05/11 MH 14.5 /2017 [place] HEMATOLOGY RBC 3.26 4.20 - 05/11 MH 5.40 /2017 [place] HEMATOLOGY Hct 33.0 36.0 - 05/11 MH 48.0 [place] HEMATOLOGY Hgb 10.5 12.0 - 05/11 MH 16.0 [place] HEMATOLOGY MCV 101.2 80.0 - 05/11 MH 98.0 [place] HEMATOLOGY MPV 9.2 7.4 - 10.4 05/11 [place] HEMATOLOGY Platelet 122 133 - 450 05/11 [place] HEMATOLOGY WBC 19.7 3.7 - 10.4 05/11 [place] HEMATOLOGY Segs 90.5 45.0 - 05/11 MH 75.0 [place] HEMATOLOGY Monocytes # 1.1 0.0 - 0.8 05/11 [place] HEMATOLOGY Basophils 0.1 0.0 - 1.0 05/11 [place] HEMATOLOGY Lymphocytes 0.7 1.0 - 5.5 05/11 MH # /2017 [place] HEMATOLOGY Neutrophils 17.8 1.5 - 8.1 09/13 MH # /2018 [place] HEMATOLOGY Lymphocytes 3.7 20.0 - 05/11 MH 40.0 2018 [place] HEMATOLOGY Monocytes 5.7 2.0 - 12.0 05/11 MH /2017 [place] CHEM PANEL Magnesium 1.7 1.8 - 2.4 05/10 Lvl /2017 [place] HEMATOLOGY INR 1.08 0.85 - 05/10 MH 1. [place] HEMATOLOGY PT 14.0 12.0 - 05/10 MH 14. [place] HEMATOLOGY PTT 49.7 22.9 - 05/10 MH 35. [place] HEMATOLOGY Eosinophils 0.2 0.0 - 4.0 05/10 /2017 [place] BACTERIAL - MRSA by PCR Negative 05/10 [facility] (05/10/18 12:52 AM) [place] BACTERIAL - Source Strep Urine 05/10 [facility] *NA* /2017 [place] (05/10/18 12:49 AM) BACTERIAL - Strep Positive Negative 05/10 SEROLOGY pneumoniae *ABN* /2017 [place] Ag (05/10/18 12:49 AM) Culture: No Growth 05/10 Urine /2017 [place] CARDIAC BNP 222 <=100 05/10 ENZYMES pg/mL [place] CHEM PANEL Phosphorus 2.7 2.5 - 4.5 05/10 [place] CHEM PANEL Bili Direct <0.1 0.0 - 0.3 05/10 [place] CHEM PANEL Bili Unable to 0.0 - 1.0 05/10 Indirect Calculate [place] CHEM PANEL Lactic Acid 1.0 0.5 - 2.2 05/10 Lvl [place] CHEM PANEL Procalcitoni 24.32 0.00 - 05/10 Result n Lvl 0.10 Comment: [place] Critical Result(s) called to Kong Villatoro at 05/10/2018 04:51 by [facility]. Read back OK. HEMATOLOGY INR 1.02 0.85 - 05/10 MH 1. [place] HEMATOLOGY PTT 32.8 22.9 - 05/10 MH 35.8 [place] HEMATOLOGY PT 13.4 12.0 - 05/10 MH 14. 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 TECHNIQUE: Rapid acquisition spiral CT images of the brain and neck were obtained between the aortic arch and the cranial vertex during intravenous infusion of iodinated contrast for the purposes of CT angiography . 3-D CT angiographic images are created using MIP technique at the acquisition workstation. The source images are also presented for interpretation. IV contrast: 60 mL Visipaque 320 DLP: mGy-cm FINDINGS: NECK CTA: Aortic arch: The great vessels originate from the arch in a type II configuration atherosclerotic changes are present in all the great vessel origins with [id number] stenosis. The vertebral artery origins are patent bilaterally. Carotid arteries: The right common carotid artery demonstrates stasis with a contrast level in its proximal few centimeters. There is been no opacification of the distal right common carotid artery, the bifurcation, or the internal carotid artery. There is some opacification of the right external carotid artery branches via collateral flow. Right internal carotid arteries reconstituted intracranially from anterior communicating and posterior communicating collaterals with back filling of the ophthalmic branch. The left carotid artery demonstrates extensive atherosclerotic plaque at the bifurcation with a luminal diameter of 1.6 mm consistent with stenosis of 65%. There is eccentric calcification and low-densi ty subintimal material consistent with either thrombus or lipid rich core. Vertebral arteries: The vertebral arteries have a normal course, caliber and contour. There are numerous subcentimeter nodules in both lobes of thyroid. Changes of endoscopic sinus surgery are noted without residual or recurrent disease. BRAIN CTA: The anterior and posterior circulations have a normal appearance and a standard branching pattern. No branch occlusion, vascular injury, arteritis, vascular malformation or aneurysm is identified. The deep cerebral veins and major venous sinuses are normal. Chronic watershed ischemic changes are noted in the right hemisphere IMPRESSION: There is lack of opacification in most of the right common carotid artery and in the right internal carotid artery up to the ophthalmic segment. I suspect there has been chronic severe flow limiting stenosis of the right internal carotid artery origin with resultant watershed ischemic change in the right hemisphere, which is finally become occlusive. Distal and proximal propagation of clot suspected. I do not see distal embolization to the right MCA branches at this time. There is 65% stenosis of the left internal carotid artery with mural irregularity. 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 COMPARISON: None. TECHNIQUE: Multiplanar images of the cervical spine without contrast. Axial , sagittal and coronal images are provided. IV contrast: None. OUTSIDE REPORT: From [facility] Multilevel degenerative changes. No acute abnormality. DISCUSSION: No acute fracture or malalignment is identified. A single sclerotic lesion is seen in the C5 vertebral body, likely representing a benign bone island No acute soft tissue abnormality is identified. IMPRESSION: 1. No acute abnormality. 2. Degenerative disc disease. 3. Sclerotic focus in the C5 body, likely representing a benign bone island. This report is in agreement with the initial interpretation obtained from the outside facility. Brain-Outside Consult EXAM: CT FACIAL BONES WITHOUT CONTRAST 10/28/2018 [facility] CT DATE: 10/28/2018 13:46 MEAT CUTTER APPRENTICE Center INDICATION: Facial injury after fall COMPARISON: Same day CT head and cervical spine. TECHNIQUE: Volumetric CT of the facial bones is acquired without contrast. Axial, coronal and sagittal images are provided. IV contrast: None. DLP: 364 mGy-cm UT SECTION: ER FINDINGS: Bones: The mandible is intact, and the temporomandibular joints are well- aligned. Cortical irregularities are seen in the nasal bones bilaterally (201/50) which is likely circulation sales representative of a minimally displaced fracture. There is associated adjacent soft tissue swelling. Mucosal thickening is seen in the right maxillary sinus. Degenerative changes of the temporomandibular joints bilaterally. Innumerable scattered carious erosions are seen. Hypodensity is seen within the right frontal bone (series 201 image 78) measuring up to 1.7 cm on axial images. Soft tissues: No abnormality of the globes is seen. There is no intraconal hematoma. No radiopaque foreign body is identified. 0.9 cm soft tissue density is seen just inferior to the right zygomatic process (series 201 image 30). This could be circulation sales representative of a lymph node. IMPRESSION: 1. Minimally displaced fractures of the nasal bones bilaterally with associated soft tissue swelling. 2. Degenerative changes of the temporomandibular joints bilaterally. 3. Mucosal thickening in the right maxillary sinus could be circulation sales representative of sinusitis. 4. Nonspecific hypodensity within the right frontal bone. Brain-Outside Consult EXAM: CT BRAIN WITHOUT CONTRAST 10/28/2018 [facility] CT DATE: 10/28/2018 13:46 MEAT CUTTER APPRENTICE Center INDICATION: 2nd opinion after transfer for higher level of care COMPARISON: [facility] 05/13/2018 TECHNIQUE: Formal interpretation of a CT examination of the brain performed at an outside institution is requested after patient transfer for a higher level of care. The study was performed at [facility] on 10/28/2018 at 7:54 AM.The exam consists of 352 images. FINDINGS: Decreased attenuation is identified in the superior portions of the right frontal and parietal lobes with relative sparing of the lateral perirolandic region but involvement of the medial perirolandic c ortex. This infarct is unchanged when compared with the 05/13/2018 study. Advanced chronic microvascular ischemic changes of the white matter are present bilaterally as well as remote appearing lacunar infarcts of the deep roberts matter nuclei. A degree of volume loss exists which is mildly advanced for age. The appearance of the remainder of the brain parenchyma is alsounchanged. No intraparenchymal or extra-axial hemorrhage related to the patient's trauma is detected. Mucosal thickening is seen in the right maxillary sinus, a region not included on the previous study. Incidental imaging of the orbits, visible paranasal sinuses, skull, and skull base also demonstrates no interval change. IMPRESSION: 1. No acute traumatic injury. 2. Remote right MCA distribution infarct. CT examination of the brain is unchanged. 3. Right maxillary sinus inflammatory changes. The lang interpreter at the outside institution and was able to make comparison to an exam from March which is not available to us at the present time. However , there is an intervening study performed 2017 which already shows that the infarct on the right is present at that time. 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 FINDINGS: Lines, tubes and hardware: None. Lungs and pleura: Interstitial opacities are seen diffusely throughout the lungs bilaterally. The left costophrenic sulcus is blunted. Heart and mediastinum: The cardiomediastinal silhouette is unchanged. Atherosclerosis of the aortic knob. Bones: No acute abnormality. IMPRESSION: 1. Interstitial opacities are seen diffusely throughout the lungs bilaterally and could be circulation sales representative of volume overload or atypical infection. 2. Left pleural effusion. UT SECTION: ER Esophagus BA swallow Patient Name: AMY LANDRUM 05/16/2018 [facility] function video DX : 1940; Age: 77 years y/o Female MR: [id number] * MODIFIED BARIUM SWALLOW HISTORY: Dysphagia, cough with fluids, pneumonia. COMMENT: A modified barium swallow was performed in conjunction with the speech pathologist in the usual manner. The fluoroscopy time was: 0.9 minutes. Radiation dose: 2.5 mGy. IMPRESSION: Barium of nectar consistency from a spoon: No aspiration or penetration. Thin barium from a spoon: No aspiration or penetration. Thin barium from a cup: Silent aspiration. Barium of pudding consistency: Normal swallowing mechanism, no aspiration or penetration. Barium of nectar consistency from a straw: No aspiration or penetration. Please refer to the speech pathologist report. SL: [id number] Abdomen 1 v for Clinical Indication: - tube placement 05/16/2018 [facility] Placement DX Comparison: Today's date FINDINGS: The AP supine view of the abdomen shows a non-obstructive bowel gas pattern. There is no abnormal dilatation of bowel loops. There is no pneumatosis or mass effect. There is no gross evidence for pneumo peritoneum. There are no radiopaque densities noted. There are no clinically significant osseous abnormalities noted. A nasogastric tube terminates within the epigastrium. IMPRESSION: 1. Nasogastric tube has been pulled back and terminates in the region of the distal stomach. SL: [id number] Abdomen 1 v for Clinical Indication: - tube placement 05/15/2018 [facility] Placement DX Comparison: None FINDINGS: The AP supine view of the abdomen shows a non-obstructive bowel gas pattern. There is no abnormal dilatation of bowel loops. There is no pneumatosis or mass effect. There is no gross evidence for pneumo peritoneum. There are no radiopaque densities noted. There are no clinically significant osseous abnormalities noted. There is a nasogastric tube which is coiled within the epigastrium. IMPRESSION: 1. Nasogastric tube is coiled within the epigastrium. SL: [id number] Brain wo contrast CT Clinical Indication: Altered mental status. 05/13/2018 [facility] Comparison: Brain MR 12/07/2006 TECHNIQUE: CT images were obtained from the foramen magnum to the vertex without the use of intravenous contrast on a multidetector CT. Axial, coronal and sagittal reformats created. CT imaging performed at this location utilizes radiation dose optimization techniques which include one or more of the following: -Automated exposure control -Adjustment of the mA and/or kV according to patient size -Use of iterative reconstruction technique CT Radiation Dose DLP: 1306 mGy-cm. DLP means Dose Length Product, a radiation dose metric that does not report individual patient dose, but is a reference value related to the radiation output of the scanner used for this exam. FINDINGS: No acute parenchymal hemorrhage. No large subacute infarction. There is no mass effect or midline shift. There is encephalomalacia in the vascular distribution of the right middle cerebral artery, predominantly within the right frontal and parietal lobes. There is an additional chronic infarction in the an terior right frontal lobe. In addition, there are chronic lacunar infarctions in the right and left striatocapsular regions, thalami and right cerebellum. The areas of low attenuation in the supratentor ial white matter are nonspecific but favor moderate/advanced microvascular ischemic changes. There is no acute extra axial hemorrhage. There is no acute hydrocephalus. The ventricles and sulci are widened, consistent with moderate cerebral volume loss. The infarctions and lacunar infarctions, although chronic, were not present on the brain MR performed on 12/07/2006. If there is further concern for intracranial pathology or acute stroke, MRI of the brain may be performed for complete assessment. IMPRESSION: No acute intracranial hemorrhage, mass effect or large subacute infarction. SL: [id number] Abdomen AP DX Study: Abdomen AP DX 05/13/2018 6:33 AM CDT 05/13/2018 [facility] Clinical Indication: - Check for NGT placement; Comparison: Abdominal radiograph of 05/12/2018 FINDINGS: Gastric tube follows the expected course of the esophagus and stomach with the tip over the expected body of the stomach along the left flank , stable position from prior exam . Nonobstructi ve bowel gas pattern. Vascular stents along the bilateral iliacs. Stable small right pleural effusion. Stable left retrocardiac atelectasis versus infiltrate. SL: [id number] Abdomen AP DX Abdomen single view 05/12/2018 [facility] Clinical Indication: NGT placement; Comparison: None FINDINGS: Nasogastric tube tip is within the stomach. The AP supine view of the abdomen shows a non-obstructive bowel gas pattern. There is mild diffuse distention of small bowel loops and colon. There is no pneu matosis or mass effect. There is left lower lobe atelectasis and/or infiltrate. Small right pleural effusion with right lung base atelectasis also present. IMPRESSION: 1. Unobstructed abdominal bowel gas pattern. 2. NG tube tip within the stomach. 3. Retrocardiac left lower lobe infiltrate and/or atelectasis, small right pleural effusion, right lung base atelectasis noted. SL: [id number]-M Chest 1view DX Chest 1view DX 05/11/2018 3:40 PM CDT 05/11/2018 [facility] Ordering Physician: Anuj Nguyễn MD CLINICAL HISTORY: - Accidental removal of chest Xray; TECHNIQUE: A single AP view of the chest was obtained. COMPARISON: May 10, 2018. FINDINGS: Hazy right basilar density is seen. Complete atelectasis of the left lower lobe and lingula are again noted. Left pleural effusion is seen. Left-sided chest tube is no longer visualized. No radiographically detectable pneumothorax is present. The cardiac silhouette is obscured but appears normal in size. No acute osseous abnormality is evident. IMPRESSION: 1. No significant change. SL: [id number] Chest wo contrast CT Patient Name: AMY LANDRUM 05/10/2018 [facility] : 1940; Age: 77 years Female MR: [id number] Study: Chest wo contrast CT 05/10/2018 9:07 AM CDT CLINICAL INDICATION: Left lung atelectasis COMPARISON: CT chest on 12/06/2006, chest radiograph on 05/10/2018 TECHNIQUE: Multidetector CT imaging of the chest WITHOUT IV contrast. Coronal and sagittal reconstructions were obtained. CT imaging performed at this location utilizes radiation dose optimization techn iques which include one or more of the following: -Automated exposure control -Adjustment of the mA and/or kV according to patient size -Use of iterative reconstruction technique Radiation dose: 154.76 mGycm FINDINGS: Lines/tubes: Left chest tube in place with tip located within the anterior left lung base. Lung parenchyma: Complete atelectasis of the left lower lobe and lingula. Patchy consolidative changes and groundglass opacities within the right lower lobe and bilateral upper lobes. Underlying centrilobular emphysematous changes. Pleura: Small left hydropneumothorax. Trace right pleural effusion. Airways: Large amount of debris within the left mainstem and left upper lobe bronchus resulting in near complete occlusion. The left lower lobe and lingular bronchi are completely occluded with debris. The right lower lobe and right intermedius bronchi are partially occluded with debris. Extensive tracheobronchial calcifications. Mediastinum: Unremarkable thyroid. No significant lymphadenopathy. Dense coronary artery calcifications. Leftward shifting of the mediastinum related to left lung volume loss. Bones and soft tissues: Degenerative changes of the thoracic spine. Upper abdomen: The visualized structures of the upper abdomen are grossly unremarkable. IMPRESSION: Complete atelectasis of the left lower lobe and lingula related to complete obstruction of the left lower lobe and lingular bronchi. Near complete occlusion of the left mainstem and left upper lobe bron chi. Partial occlusion of the right lower lobe and right intermedius bronchi. Small left hydropneumothorax and trace right pleural effusion. Left chest tube in place with tip located at the anterior left lung base. Patchy consolidative changes and groundglass opacities within the right lower lobe and bilateral upper lobes, suspicious for multifocal pneumonia. Underlying emphysematous changes. SL: [id number] Chest 1view DX Clinical Indication: - Lt Lung Collapse w/Chest tube; 2017 [facility] Comparison: 12/10/2006 FINDINGS: AP chest radiographs shows normal lung volumes with left lower lobe airspace disease and shift of mediastinum secondary to volume loss. The left chest tube is positioned near the cerebellopontine angle. No left pneumothorax is identified. There is small right effusion.. The heart size is within normal limits. There is shift of the mediastinum towards the left. The aorta is tortuous and atherosclerotic. The trachea is midline. There are no clinically significant osseous abnormalities noted. IMPRESSION: 1. Interval decreased aeration of the left lung field with shift of the mediastinum and left lower lobe atelectasis. There is a left chest tube identified with the tip positioned in the costophrenic angle. 2. Small right effusion. SL: [id number] Consultation Notes No Data Provided for This Section Discharge Summaries No Data Provided for This Section History and Physicals No Data Provided for This Section Vital Signs Vital Sign Value Date Comments Source Respitory Rate 18 10/29/2018 [facility] Heart Rate 94 10/29/2018 [facility] Temperature Oral (F) 98.2 F 10/29/2018 [facility] Systolic (mm Hg) 148 10/29/2018 [facility] Diastolic (mm Hg) 66 10/29/2018 [facility] Systolic (mm Hg) 138 10/29/2018 [facility] Diastolic (mm Hg) 85 10/29/2018 [facility] Temperature Oral (F) 97.9 F 10/29/2018 [facility] Heart Rate 85 10/29/2018 [facility] Respitory Rate 19 10/29/2018 [facility] Systolic (mm Hg) 135 10/29/2018 [facility] Diastolic (mm Hg) 61 10/29/2018 [facility] Respitory Rate 20 10/29/2018 [facility] Heart Rate 89 10/29/2018 [facility] Temperature Oral (F) 98.0 F 10/29/2018 [facility] BMI Calculated 21.12 10/29/2018 [facility] Weight 54.091 10/29/2018 [facility] Height 160.02 cm 10/29/2018 [facility] Weight 54.4 10/28/2018 [facility] BMI Calculated 21.24 10/28/2018 [facility] Height 160.02 cm 10/28/2018 [facility] Respitory Rate 16 05/16/2018 [facility] Systolic (mm Hg) 139 05/16/2018 [facility] Diastolic (mm Hg) 82 05/16/2018 [facility] Heart Rate 79 05/16/2018 [facility] Temperature Oral (F) 98.1 F 05/16/2018 [facility] Respitory Rate 16 05/16/2018 [facility] Respitory Rate 16 05/16/2018 [facility] Systolic (mm Hg) 119 05/16/2018 [facility] Diastolic (mm Hg) 66 05/16/2018 [facility] Heart Rate 83 05/16/2018 [facility] Heart Rate 68 05/16/2018 [facility] Temperature Oral (F) 98.5 F 05/16/2018 [facility] Systolic (mm Hg) 143 05/16/2018 [facility] Diastolic (mm Hg) 60 05/16/2018 [facility] Temperature Oral (F) 98.0 F 05/16/2018 [facility] BMI Calculated 14.9 05/10/2018 [facility] Height 152.4 cm 05/10/2018 [facility] Weight 34.6 05/10/2018 [facility] Height 152.4 cm 05/10/2018 [facility] Weight 34.6 05/10/2018 [facility] BMI Calculated 14.9 05/10/2018 [facility] Encounters Location Location Encounter Encounter Reason Attending ADM DC Status Source Details Type Number For Provider Date Date Visit Outpatient [id number] ART 02/16 [facility] /2015 [place] [facility] [id number] ART 08/31 [facility] /2016 [facility] Inpatient [id number] Kamran 05/10 05/17 [facility] [id number] Pebbles 10/28 10/29 [facility] Duffy /2018 [facility] Procedures No Data Provided for This Section Assessment and Plan Assessment and Plan Date Source Extracted from:Title: History and Physical 10/29/2018 [facility] Author: Carlos Hoffman MD Date: 10/28/18 1.Hypoxia(R09.02) Resolved. Back to her baseline oxygen requirements. Likely precipitated by trauma vs acute bronchitis vs PNA CXR showed interstitial infiltrates possibly pulm edema. 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(I63.9) Continue supportive care 4.Fall from bed(W06.XXXA) 2/2 CVA w/ residual left hemiparesis.May benefit from bedrails at the intermediate 5.Left arm DVT(I82.402) On Apixaban 6.HTN (hypertension)(I10) Continue nifedipine 7.Alzheimer disease(G30.9) Continue supportive care Apixaban Pending clinical improvement Extracted from:Title: Stroke Author: Jewel Fritz MD Date: 10/28/18 Stroke History and Physical Patient: Amy Landrum Consult Requested By: transfer from [facility] Chief Complaint: fall from bed History of Present Illness: Patient is a 78 year old female with a PMH of COPD, HTN, PAD s/p stent not on antiplatelet therapy, DVT on eliquis and RMCA infarct in 2018 with residual left sided deficits. Patient presents from [facility] in [facility] after patient was noted to have a large area of encephalomalacia in the R MCA territory which was new on comparison scan from March of 2018. Patient reportedly fell from the bed this morning. She was found epistaxis which resolved spontaneously and was also noted to have significant swelling of her left elbow. Patient's relatives at bed side report that her left sided weakness and mentation appear consistent with her baselin status. Review of CT brain performed at OSH reveals evidence of expected evolution of her prior RMCA infarct. No known seizure activity. Patient was found to have the RMCA stroke on CT brain on 05/13/18 after having been hospitalized initially for a pneumothorax and COPD exacerbation. No stroke work-up was performed during that admission and the patient's family opted for hospice care. However, the patient has recently left hospice care and is currently at a [facility] named [facility]. At baseline the patient is bedbound and dependent for ADL. Prior to her hospitalization in Apr 2018 the patient was largely living independently. Review of Systems: GEN: no fever, chills, weight loss, fatigue EYES: no blurred vision, double vision CARDIO: no chest pain, palpitations PULM: + cough, recent PNA GI: no nausea, vomiting, diarrhea, no abd pain : no frequency, dysuria, hematuria NEURO: see HPI SKIN: no rash or lesion MSK: no pain, swelling, redness, heat in muscles, no limited ROM, weakness, or atrophy, no cramps LYMPH/IMMUNO: No lymph node enlargement/tenderness, no heat/cold intolerance Past Medical History: RMCA stroke, HTN, COPD. Last admitted to hospital ~ 3 weeks ago for infectious work-up per family. Peripheral artery disease Past Surgical History: Hysterectomy, appendectomy, tonsillectomy, total hip replacement, total knee replacement, hernia repair, hip surgery Family Medical History: Family history of coronary artery disease hypertension and diabetes. Social History: Prior smoker. Lives in intermediate. MPOA reported to be Casi Hollins ([phone]) Medications: vit C 500 BID, benzonatate 200mg TID, eliquis 5mg BID, lasix 20mg qd, Allergies: NKDA Physical Exam: Vitals Vitals Tmp(F) Tmp(C) Ttype BP MAP Pulse RR SpO2 FIO2 ETCO2 10/28 13:21 ---- ---- ---- 115/56 75 109 22 95 --- --- 10/28 12:36 ---- ---- ---- 193/83 --- 109 20 100 -- - 0 10/28 12:22 97.7 36.50 oral 162/65 --- 109 19 93 4.0L/m --- 24 Hr Tmax: 97.7F (36.50c) at 10/28 12:22 24 Hr Tmin: 97.7F (36.50c) at 10/28 12:22 GENERAL: Awake, alert HEENT: linear nasal laceration, dry LUNGS: Clear to auscultation bilaterally with no wheezes CV: S1S2 RRR ABDOMEN: Soft, nondistended MSK: left elbow fluid collection NEURO: Mental Status: oriented to person and situation but not date Language: speech is dysarthric. Naming intact for high frequency objects, repetition intact but difficult given poor hearing, fluency, and comprehension intact for single step commands Cranial Nerves: PERRL 3mm, reactive. EOM grossly intact, blinks to threat in all 4 quadrants, right lower facial droop, decreased hearing to finger rub BL, no tongue atrophy, protrudes midline, shoulder shrug intact Motor: RUE: antigravity without drift, symmetric flexor and extensor strength. LUE: No antigravity. abducted at shoulder, flexed at elbow and wrist. RLE: resists gravity. Symmetric flexor and extensor s trength. LLE: extensor posturing. no movement to command Tone: spastic tone on left Sensation: Intact to light touch bilaterally with mildly reduced pinprick sensation on left. Coordination: unable to perform HTS BL. No dysmetria in RUE Gait: deferred Pre-Morbid MRS 5-Severe disability-bedridden, incontinent, needs constant attention Modified Naheed Disability Score Sc Disability / Deficits Ambulation ADLs 1 No deficits Full Full 2 Subtle (Not significant) Full Full 3 Slight Slight limitation Requires some help 4 Mod-Severe Assistance required Assistance required for most 5 Severe Bedridden / Incontenent Constant care 6 Score NIH Stroke Scale (NIHSS) 0 1a. Level of Consciousness; 0-alert 1-drowsy 2-stupor 3-coma 2 1b. LOC Questions month and age; 0-both 1-one 2-neither 0 1c. 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 Best Gaze; 0-nl 1-partial 2-forced gaze 0 3. Visual Dickens; 0-No visual loss. 1-Partial hemianopia 2-Complete 3- Bilateral 2 4. Facial Palsy; 0-none 1-minor 2-partial 3-complete 0 5. Motor - R arm; 0-No drift 1-Drift 2-Some antigravity 3-No antigravity 4- No movement 2 6. Motor - R leg; 0-No drift 1-Drift 2-Some antigravity 3-No antigravity 4- No movement 3 7. Motor - L arm; 0-No drift 1-Drift 2-Some antigravity 3-No antigravity 4- No movement 4 8. Motor - L leg; 0-No drift 1-Drift 2-Some antigravity 3-No antigravity 4- No movement 0 9. Limb Ataxia; 0 absent 1 - 1limb 2 - 2 limbs 1 10. Sensory; 0-nl 1-partial loss 2-dense loss 0 11. Best Language; 0-nl 1-mild/mod 2-severe 3-mute 1 12. Dysarthria; 0-nl 1-mild/mod 2-severe x-untestable 0 13. Extinction and Inattention (formerly Neglect); 0-none 1-partial 2- complete 15 Total Labs: 10/28 1250 Glucose Lvl 113 H BUN 36 H Creatinine Lvl 0.94 Sodium Lvl 147 H Potassium Lvl 3.7 Chloride Lvl 113 H CO2 20 L AGAP 17.7 Calcium Lvl 8.0 L eGFR 59 Troponin-I 0.02 WBC 11.4 H RBC 2.91 L Hgb 8.4 L Hct 27.2 L MCV 93.3 MCH 28.8 MCHC 30.8 L RDW 17.0 H Platelet 355 MPV 7.0 L PT 18.8 H INR 1.61 H PTT 38.6 H Segs 78.9 H Monocytes 7.1 Lymphocytes 12.7 L Eosinophils 0.9 Basophils 0.4 Neutrophils # 9.0 H Lymphocytes # 1.5 Monocytes # 0.8 Eosinophils # 0.1 Plt Morph Normal Polychrom Slight EKG: sinus rhythm Imaging: CT brain reviewed Assessment: Patient is a 78 year old female who presents s/p fall with a nasal fracture who was transferred for evaluation of right hemisphere hypodensity. Review of imaging reveals expected evoluation of her prior RMCA infarct. Patient never had a stroke work-up as she placed in hospice care following that admission but is no longer comfort care only. As such the patient would benefit from a stroke work-up inpatient or outpatient. Plan: Chronic cerebral infarction due to embolism of right middle cerebral artery Acuity: chronic Current Suspected Etiology: pending evaluation, may be performed inpatient or outpatient. - currently would just benefit from aspirin from stroke perspective. Anticoagulation was reportedly started for a line associated thrombus in her UE. - no acute intervention by stroke service - CTA head and neck - ECHO/A1C/Lipid panel. 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 Left hemiparesis Respiratory - COPD Renal - Hypocalcemia, Hypernatremia Heme- Anemia Trauma - Head trauma, Palliative care DNI/DNR ACUTE STROKE BENCHMARKS: TIME PT LAST SEEN NORMAL at baseline EMS PRE-NOTIFICATION NA CODE STROKE ACTIVATION NA ARRIVAL TIME 1222 3/2/19 TIME OF STROKE TEAM EVALUATION NA CT HEAD READ TIME NA IV tPA bolus (time and dose) NA IV tPA infusion (time and dose) NA If not a candidate for IV tPA, why? eliquis Delays in this process: (None) CTH reviewed, old R MCA changes similar to prior CTH on system. condition appear 2/2 metabolic/sepsis 2/2 PNA. Defer further trauma w/up to primary/ER ( CTA for head trauma). If decided to stop her AC given her facial fx then please put on ASA and switch back to AC whenever cleared from trauma/fracture stand point. will follow, call for questions. Poly Leon MD. PGY 5 Vascular Neurology fellow. Neurology Attending: I reviewed the resident's note, personally reviewed all the patients labs and imaging studies and performed a neurological exam. I discussed the assessment and plan of care and agree with th e plan as outlined in the resident's note. See note below for additions and/or exceptions and my findings. Pt with chronic RMCA stroke secondary to right commun carotid occlusion. Exam Alerted, oriented to person and place. LFD and Left hemiparesis, bedbound. Continue eliquis (for DVT) per primary, when no l onger needed it, can start ASA from stroke stand point. Can follow up in stroke clinic for work up/further management. [facility] [address] [place] [address] [phone] [place] [address] Stroke Team will sign off. Please call with questions #[phone] (pager) / #[phone] ( after 5pm) Klaudia Bearden MD Extracted from:Title: Kendrick HOOD 05/17/2018 [place] Author: Raleigh Marks MD Date: 05/16/18 Impression and Plan IMPRESSION: 1. Acute hypoxemic respiratory failure 2. Pneumococcal pneumonia 3. Left lung collapse 2/2 bronchial obstruction 4. Sepsis 5. Marked leukocytosis,resolved 6. Metabolic encephalopathy 7. Accelerated HTN 8. Severe protein calorie malnutrition 9. Hypomagnesemia/hypokalemia/hypernatremia 10. Thrombocytopenia 11. Chronic anemia 12. COPD 13. Chronic CVA PLAN: 1. Continue with metronidazole and ceftriaxone for now 2. Family declined intubation and bronchoscopy 3. Wean off high flow nasal cannula as tolerated 4. Supportive care medicine input appreciated. Family agreed for hospice 5. [place] [facility] to eval pt later today 6. Continue current mgmt for now 7. Supplement lytes 8. DNR/DNI 9. Disposition: Awaiting arrangement for hospice Extracted from:Title: General Admission H&P * Author: Logan Gaston MD Date: 05/09/18 Impression and Plan 77-year-old female with history of COPD/emphysema, dementia, chronic pain, anxiety, history of fracture of humerus, hypertension, transfer from [facility] because of lung collaps, status post chest tube placement. 1. Sepsis. Blood culture, lactate. Switch to cefepime and vancomycin. 2. Pneumonia. As #1. 3. COPD/emphysema with acute exacerbation. Albuterol, Atrovent, steroids. 4.. Left lung collapse and probable mucous plugging. Status post chest tube placement. Pulmonary consult. 5. C. difficile antigen positive. Add metronidazole. 6. Dementia. 7. Cachexia. 8. Hypertension. Uncontrolled. Resume blood pressure medication as tolerated. 9. DVT prophylaxis. Lovenox. Plan of Care No Data Provided for This Section Social History Social History Date Source Social History TypeResponse 05/10/2018 [facility] Substance Abuse Use: None. IV drug use: No. Alcohol Never, Previous treatment: None. Smoking Status Never smoker; Previous treatment: None; Ready to change: No; Concerns about tobacco use in household: No; Exposure to Tobacco Smoke None; Cigarette Smoking Last 365 Days No; Reg Smoking Cessation Counseling No entered on: 10/28/18 Social History TypeResponse 05/10/2018 [facility] Substance Abuse Use: None. IV drug use: No. Alcohol Never, Previous treatment: None. Smoking Status Never smoker; Previous treatment: None; Ready to change: No; Concerns about tobacco use in household: No; Exposure to Tobacco Smoke None; Cigarette Smoking Last 365 Days No; Reg Smoking Cessation Counseling No entered on: 10/28/18 Family History No Data Provided for This Section Advance Directives No Data Provided for This Section Functional Status No Data Provided for This Section
--- OUTSIDE RECORDS SUMMARY | 2019-03-09 14:06 | XMS REPORT ---
:1940 Author Organization [employer] Care Team Providers Name Role Phone Santos Sloan Provider Role Unavailable Allergies, Adverse Reactions, Alerts Substance Reaction Event Type N.K.D.A. Info Not Available Non Drug Allergy Problems Problem Type Condition Code Onset Dates Condition Status Assessment Pain, joint, shoulder, left M25.512 Active Assessment Pain of left foot M79.672 Active Assessment Closed nondisplaced fracture of S92.515D Active proximal phalanx of lesser toe of left foot with routine healing, subsequent encounter Assessment Other closed displaced fracture of S42.292D Active proximal end of left humerus with routine healing, subsequent encounter Assessment Closed nondisplaced fracture of S92.415D Active proximal phalanx of left great toe with routine healing, subsequent encounter Medications Medication Code Code Instructions Start End Date Status Dosage System Date Lisinopril FORMERLY NAMED [facility] 56189951805 40 MG Oral Active TK 1 T PO D Clonazepam ND 35582439950 1 MG Oral Active (Schedule IV Drug) TK 1 T PO TID PRN P Acetaminophen- FORMERLY NAMED [facility] [id number] 300-30 MG Oral Active (Schedule Codeine #3 III Drug) TK 1 T PO Q 6 H PRN P Results No Known Results Summary Purpose eClinicalWorks Submission
--- OUTSIDE RECORDS SUMMARY | 2019-03-09 14:06 | XMS REPORT ---
:1940 [facility] Address [address] [place] [address] Care Team Providers Name Role Phone Unavailable Unavailable Unavailable Payers Payer Name Policy Type Policy Number Effective Date Expiration Date Problems This patient has no known problems. Allergies, Adverse Reactions, Alerts Allergy Allergy Status Severity Reaction(s) Onset Inactive Treating Comments Name Type Date Date Clinician No Known DA Active U 2018-09 Allergies 12 00:00:0 0 Medications This patient has no known medications. Results Test Description Test Time Test Comments Text Results Atomic Results Result Comments BASIC METABOLIC PANEL 2018-10-13 09:14:00 Test Item Value Reference Range Comments SODIUM (test code=NA) 142 MMOL/L 137-145 POTASSIUM (test code=K) 3.9 MMOL/L 3.5-5.1 CHLORIDE (test code=CL) 108 MMOL/L 98-107 CARBON DIOXIDE (test code=CO2) 26 MMOL/L 22-30 ANION GAP (test code=GAP) 12 MMOL/L 14-24 GLUCOSE (test code=GLU) 137 MG/DL 74-106 BLOOD UREA NITROGEN (test 36 MG/DL 7-17 code=BUN) GLOMERULAR FILTRATION RATE (test > 60 Reporting units: ml/min/1.73 m2 code=GFR) (Modified MDRD Formula)Reference Range: > or=60 ml/min/1.73 m2 CREATININE (test code=CREAT) 0.70 MG/DL 0.52-1.04 CALCIUM (test code=CA) 9.3 MG/DL 8.4-10.2 PATIENT IS A HARD STICK. UNABLE TO GET BLOOD SAMPLE.LINE NOT WORKING. NEED PHLEB PER NURSEON 10/13/18 AT 0650 BY TAMMIE UNABLE TO DRAW BLOOD, REASON: CBNNOTIFIED PATIENT CARE STAFF: CHERI 10/13/18 AT 0608 BY Luci Campbell W/AUTO [id number] 07:21:00 Test Item Value Reference Range Comments WHITE BLOOD CELL (test code=WBC) 19.2 K/MM3 3.8-9.8 RED BLOOD CELL (test code=RBC) 3.58 M/MM3 3.58-4.97 HEMOGLOBIN (test code=HGB) 10.4 G/DL 11.2-14.9 HEMATOCRIT (test code=HCT) 32.4 % 33.2-43.5 MEAN CELL VOLUME (test code=MCV) 91 fL 80.7-99.1 MEAN CELL HGB (test code=MCH) 29.1 pg 27.0-34.1 MEAN CELL HGB CONCETRATION (test code=MCHC) 32.1 % 32.2-35.7 RED CELL DISTRIBUTION WIDTH (test code=RDW) 15.9 % 12.1-15.2 PLATELET COUNT (test code=PLT) 298 K/MM3 129-368 MEAN PLATELET VOLUME (test code=MPV) 9.1 fl 7.4-10.4 NEUTROPHIL % (test code=NT%) 81.8 % 43-75 IMMATURE GRANULOCYTE % (test code=IG%) 1.6 % 0.0-2.0 LYMPHOCYTE % (test code=LY%) 10.0 % 14-44 MONOCYTE % (test code=MO%) 6.4 % 4-13 EOSINOPHIL % (test code=EO%) 0.0 % 0-6 BASOPHIL % (test code=BA%) 0.2 % 0-2 NUCLEATED RBC % (test code=NRBC%) 0.0 % 0-1.0 NEUTROPHIL # (test code=NT#) 15.7 K/mm3 2.0-7.6 IMMATURE GRANULOCYTE # (test code=IG#) 0.30 x10 3/uL 0-0.03 LYMPHOCYTE # (test code=LY#) 1.9 K/mm3 1.0-3.8 MONOCYTE # (test code=MO#) 1.23 K/mm3 0.1-0.8 EOSINOPHIL # (test code=EO#) 0.0 K/mm3 0.0-0.2 BASOPHIL # (test code=BA#) 0.03 K/mm3 0.0-0.2 NUCLEATED RBC # (test code=NRBC#) 0.0 K/mm3 0.0-0.1 PATIENT IS A HARD STICK. UNABLE TO GET BLOOD SAMPLE.LINE NOT WORKING. NEED PHLEB PER NURSEON 10/13/18 AT 0650 BY COOPER.RB UNABLE TO DRAW BLOOD, REASON: CBNNOTIFIED PATIENT CARE STAFF: CHERI 10/13/18 AT 0609 BY Luci Campbell [facility] W/AUTO [id number] 20:37:00 Test Item Value Reference Range Comments WHITE BLOOD CELL (test code=WBC) 17.7 K/MM3 3.8-9.8 RED BLOOD CELL (test code=RBC) 3.49 M/MM3 3.58-4.97 HEMOGLOBIN (test code=HGB) 10.1 G/DL 11.2-14.9 HEMATOCRIT (test code=HCT) 33.0 % 33.2-43.5 MEAN CELL VOLUME (test code=MCV) 95 fL 80.7-99.1 MEAN CELL HGB (test code=MCH) 28.9 pg 27.0-34.1 MEAN CELL HGB CONCETRATION (test code=MCHC) 30.6 % 32.2-35.7 RED CELL DISTRIBUTION WIDTH (test code=RDW) 15.9 % 12.1-15.2 PLATELET COUNT (test code=PLT) 291 K/MM3 129-368 MEAN PLATELET VOLUME (test code=MPV) 9.3 fl 7.4-10.4 NEUTROPHIL % (test code=NT%) 82.1 % 43-75 IMMATURE GRANULOCYTE % (test code=IG%) 2.4 % 0.0-2.0 LYMPHOCYTE % (test code=LY%) 8.5 % 14-44 MONOCYTE % (test code=MO%) 6.8 % 4-13 EOSINOPHIL % (test code=EO%) 0.0 % 0-6 BASOPHIL % (test code=BA%) 0.2 % 0-2 NUCLEATED RBC % (test code=NRBC%) 0.0 % 0-1.0 NEUTROPHIL # (test code=NT#) 14.5 K/mm3 2.0-7.6 IMMATURE GRANULOCYTE # (test code=IG#) 0.43 x10 3/uL 0-0.03 LYMPHOCYTE # (test code=LY#) 1.5 K/mm3 1.0-3.8 MONOCYTE # (test code=MO#) 1.20 K/mm3 0.1-0.8 EOSINOPHIL # (test code=EO#) 0.0 K/mm3 0.0-0.2 BASOPHIL # (test code=BA#) 0.03 K/mm3 0.0-0.2 NUCLEATED RBC # (test code=NRBC#) 0.0 K/mm3 0.0-0.1 BASIC METABOLIC [id number] 10:44:00 Test Item Value Reference Range Comments SODIUM (test code=NA) 142 MMOL/L 137-145 POTASSIUM (test code=K) 4.4 MMOL/L 3.5-5.1 CHLORIDE (test code=CL) 111 MMOL/L 98-107 CARBON DIOXIDE (test code=CO2) 19 MMOL/L 22-30 ANION GAP (test code=GAP) 16 MMOL/L 14-24 GLUCOSE (test code=GLU) 196 MG/DL 74-106 BLOOD UREA NITROGEN (test 36 MG/DL 7-17 CONSTANT WITH PREVIOUS code=BUN) RESULTS GLOMERULAR FILTRATION RATE > 60 Reporting units: ml/min/1.73 (test code=GFR) m2 (Modified MDRD Formula)Reference Range: > or=60 ml/min/1.73 m2 CREATININE (test code=CREAT) 0.70 MG/DL 0.52-1.04 CALCIUM (test code=CA) 9.1 MG/DL 8.4-10.2 UNABLE TO DRAW BLOOD, REASON: CBNNOTIFIED PATIENT CARE STAFF: CHERI 10/12/18 AT 0735 BY Caitlin Bai W/AUTO [id number] 10:16:00 Test Item Value Reference Range Comments WHITE BLOOD CELL (test code=WBC) 18.9 K/MM3 3.8-9.8 RED BLOOD CELL (test code=RBC) 3.41 M/MM3 3.58-4.97 HEMOGLOBIN (test code=HGB) 9.9 G/DL 11.2-14.9 HEMATOCRIT (test code=HCT) 33.2 % 33.2-43.5 MEAN CELL VOLUME (test code=MCV) 97 fL 80.7-99.1 MEAN CELL HGB (test code=MCH) 29.0 pg 27.0-34.1 MEAN CELL HGB CONCETRATION (test code=MCHC) 29.8 % 32.2-35.7 RED CELL DISTRIBUTION WIDTH (test code=RDW) 15.6 % 12.1-15.2 PLATELET COUNT (test code=PLT) 242 K/MM3 129-368 MEAN PLATELET VOLUME (test code=MPV) 9.4 fl 7.4-10.4 NEUTROPHIL % (test code=NT%) 77.3 % 43-75 IMMATURE GRANULOCYTE % (test code=IG%) 2.3 % 0.0-2.0 LYMPHOCYTE % (test code=LY%) 12.3 % 14-44 MONOCYTE % (test code=MO%) 7.9 % 4-13 EOSINOPHIL % (test code=EO%) 0.0 % 0-6 BASOPHIL % (test code=BA%) 0.2 % 0-2 NUCLEATED RBC % (test code=NRBC%) 0.0 % 0-1.0 NEUTROPHIL # (test code=NT#) 14.6 K/mm3 2.0-7.6 IMMATURE GRANULOCYTE # (test code=IG#) 0.43 x10 3/uL 0-0.03 LYMPHOCYTE # (test code=LY#) 2.3 K/mm3 1.0-3.8 MONOCYTE # (test code=MO#) 1.50 K/mm3 0.1-0.8 EOSINOPHIL # (test code=EO#) 0.0 K/mm3 0.0-0.2 BASOPHIL # (test code=BA#) 0.04 K/mm3 0.0-0.2 NUCLEATED RBC # (test code=NRBC#) 0.0 K/mm3 0.0-0.1 UNABLE TO DRAW BLOOD, REASON: CBNNOTIFIED PATIENT CARE STAFF: CHERI 10/12/18 AT 0735 BY Baron Bai METABOLIC [id number] 09:59:00 Test Item Value Reference Range Comments SODIUM (test code=NA) 142 MMOL/L 137-145 POTASSIUM (test code=K) 3.9 MMOL/L 3.5-5.1 CHLORIDE (test code=CL) 108 MMOL/L 98-107 CARBON DIOXIDE (test code=CO2) 24 MMOL/L 22-30 ANION GAP (test code=GAP) 14 MMOL/L 14-24 GLUCOSE (test code=GLU) 275 MG/DL 74-106 BLOOD UREA NITROGEN (test 31 MG/DL 7-17 code=BUN) GLOMERULAR FILTRATION RATE > 60 Reporting units: ml/min/1.73 (test code=GFR) m2 (Modified MDRD Formula)Reference Range: > or=60 ml/min/1.73 m2 CREATININE (test code=CREAT) 0.70 MG/DL 0.52-1.04 CALCIUM (test code=CA) 9.3 MG/DL 8.4-10.2 UNABLE TO DRAW BLOOD, REASON: CBNNOTIFIED PATIENT CARE STAFF: NAT 10/11/18 AT 0633 BY Luci Campbell TO DRAW BLOOD, REASON: IN M.R.I COME BACK @ 9NOTIFIED PATIENT CARE STAFF: SHOBHA 10/11/18 AT 0817 BY Luci CampbellLACTIC [id number] 09:55:00 Test Item Value Reference Range Comments LACTIC ACID (test code=LACT) 3.1 MMOL/L 0.7-2.1 UNABLE TO DRAW BLOOD, REASON: CBNNOTIFIED PATIENT CARE STAFF: NAT 10/11/18 AT 0633 BY Luci Campbell TO DRAW BLOOD, REASON: IN M.R.I COME BACK @ 9NOTIFIED PATIENT CARE STAFF: CORY 10/11/18 AT 0814 BY Luci Campbell W/AUTO [id number] 09:36:00 Test Item Value Reference Range Comments WHITE BLOOD CELL (test code=WBC) 20.0 K/MM3 3.8-9.8 RED BLOOD CELL (test code=RBC) 3.89 M/MM3 3.58-4.97 HEMOGLOBIN (test code=HGB) 11.3 G/DL 11.2-14.9 HEMATOCRIT (test code=HCT) 36.6 % 33.2-43.5 MEAN CELL VOLUME (test code=MCV) 94 fL 80.7-99.1 MEAN CELL HGB (test code=MCH) 29.0 pg 27.0-34.1 MEAN CELL HGB CONCETRATION (test code=MCHC) 30.9 % 32.2-35.7 RED CELL DISTRIBUTION WIDTH (test code=RDW) 15.1 % 12.1-15.2 PLATELET COUNT (test code=PLT) 248 K/MM3 129-368 MEAN PLATELET VOLUME (test code=MPV) 9.3 fl 7.4-10.4 NEUTROPHIL % (test code=NT%) 92.4 % 43-75 IMMATURE GRANULOCYTE % (test code=IG%) 1.5 % 0.0-2.0 LYMPHOCYTE % (test code=LY%) 5.0 % 14-44 MONOCYTE % (test code=MO%) 0.8 % 4-13 EOSINOPHIL % (test code=EO%) 0.1 % 0-6 BASOPHIL % (test code=BA%) 0.2 % 0-2 NUCLEATED RBC % (test code=NRBC%) 0.0 % 0-1.0 NEUTROPHIL # (test code=NT#) 18.5 K/mm3 2.0-7.6 IMMATURE GRANULOCYTE # (test code=IG#) 0.29 x10 3/uL 0-0.03 LYMPHOCYTE # (test code=LY#) 1.0 K/mm3 1.0-3.8 MONOCYTE # (test code=MO#) 0.16 K/mm3 0.1-0.8 EOSINOPHIL # (test code=EO#) 0.0 K/mm3 0.0-0.2 BASOPHIL # (test code=BA#) 0.04 K/mm3 0.0-0.2 NUCLEATED RBC # (test code=NRBC#) 0.0 K/mm3 0.0-0.1 UNABLE TO DRAW BLOOD, REASON: CBNNOTIFIED PATIENT CARE STAFF: NAT 10/11/18 AT 0634 BY Luci CampbellUNABLE TO DRAW BLOOD, REASON: IN M.R.I COME BACK @ 9NOTIFIED PATIENT CARE STAFF: SHOBHA 10/11/18 AT [address] CHEST W/O [id number] 08:04:00 Patient Name: RODNEY WORLEY Unit No: [id number] EXAMS: CPT CODE: [id number] CT CHEST W/O CONTRAST 74292 CT chest History: cough, r/o pneumonia Comparison: None at this time Location: R16 CT scan of the chest was performed without intravenous contrast. One or more of the following radiation dose reduction techniques was used : automated exposure control, adjustment of mA and/or KV according to patient size, and/or utilization of iterative reconstruction technique. Quality of Exam: Acceptable. Thoracic aorta: Note is made that evaluation for possible aortic dissection is unable to be performed due to the lack of intravenous contrast. The thoracic aorta otherwise appears unremarkable. Other mediastinal structures: The other mediastinal structures are unremarkable. Pulmonary arteries: Assessment for possible pulmonary embolus is unable to be performed on a noncontrast CT scan of the chest. Lymph nodes: No lymphadenopathy is identified. Pleura: There are no pleural effusions. Lung parenchyma : There are emphysematous changes in the lungs. There is minimal dependent atelectasis in the lungs. There are scattered patchy opacities in the right lower lobe. Bones/soft tissues: No concerning bony lesionis identified. No mass lesions are identified. IMPRESSION: There are scattered patchy opacities in the right lower lobe. This could be due to pneumonia. There are emphysematous changes in the lungs. There is minimal dependent atelectasis in the lungs. at 0804 Reported and signed by: Saul Noriega [facility] NAME: RODNEY WORLEY [address] PHYS: [place] [address] : [birth year]AGE: 78 SEX: F LOC: Z.624 B PHONE #: [phone] EXAM DATE: 10/11/2018 STATUS: ADM IN FAX #: [phone] RAD #: D/C DT PAGE 1 Signed Report (CONTINUED) Patient Name: RODNEY WORLEY Unit No: [id number] EXAMS: CPT CODE : [id number] CT CHEST W/O CONTRAST 73959 < Continued> CC: Mack Wilkinson MD; MARY ROSENBAUM; João Weinstein MD Technologist: Mayo Riggs, RT(R)(CT ) CTDI: DLP: Trnscrpt: 10/11/2018 (0804) t.SDR.[facility] NAME: RODNEY WORLEY [address] PHYS: [place] [address] : 1940 AGE: 78 SEX: F LOC: Z.624 B PHONE #: [phone] EXAM DATE: 10/11/2018 STATUS: ADM IN FAX #: [phone] RAD #: D/C DT PAGE 2 Signed Report Patient Name: RODNEY WORLEY Unit No: [id number] EXAMS: CPT CODE: [id number] CT CHEST W/O CONTRAST 01341 < Continued> Orig Print D/T: S: 10/11/2018 (0807) [facility] [place] NAME: RODNEY [address] PHYS: [place] [address] : 1940 AGE: 78 SEX: F LOC: Z.624 B PHONE #: [phone] EXAM DATE: 10/11/2018 STATUS: ADM IN FAX #: [phone] RAD # : D/C DT PAGE 3 Signed ReportGLUCOSE BEDSIDE [id number] 06:25:00 Test Item Value Reference Range Comments GLUCOSE BEDSIDE TESTING (test code=GLUBED) 148 MG/DL 60-99 LACTIC [id number] 02:48:00 Test Item Value Reference Range Comments LACTIC ACID (test code=LACT) 2.2 MMOL/L 0.7-2.1 URINALYSIS [id number] 19:28:00 Test Item Value Reference Range Comments UA COLOR (test code=COLU) YELLOW YELLOW UA APPEARANCE (test code=APPU) CLEAR CLEAR UA GLUCOSE DIPSTICK (test code=DGLUU) NORMAL MG/DL NORMAL UA BILIRUBIN DIPSTICK (test code=BILU) NEGATIVE MG/DL NEGATIVE UA KETONE DIPSTICK (test code=KETU) NEGATIVE MG/DL NEGATIVE UA SPECIFIC GRAVITY (test code=SGU) 1.015 1.003-1.030 UA BLOOD DIPSTICK (test code=THOMAS) NEGATIVE [place]/mm3 NEGATIVE UA PH DIPSTICK (test code=ISABEL) 6.0 5.0-9.0 UA PROTEIN DIPSTICK (test code=PROU) 15 MG/DL NEGATIVE UA UROBILINIOGEN DIPSTICK (test NORMAL MG/DL NORMAL code=URO) UA NITRITE DIPSTICK (test code=EBENEZER) NEGATIVE NEGATIVE UA LEUKOCYTE ESTERASE DIPSTICK (test NEGATIVE /mm3 NEGATIVE code=LEUU) UA CULTURE NEEDED? (test code=UACULT) NO, WBC<10 Criteria Culture Chk UA [id number] 19:28:00 Test Item Value Reference Range Comments UA RBC (test code=RBCU) NONE RBC/HPF 0-3 UA WBC (test code=XWBCU) 0-3 WBC/HPF 0-5 UA EPITHELIAL CELLS (test code=EPIU) RARE EPI/HPF FEW UA BACTERIA (test code=XBACU) RARE NONE UA YEAST (test code=YEASTU) FEW #/HPF NONE URINALYSIS [id number] 19:05:00 Test Item Value Reference Range Comments UA COLOR (test code=COLU) YELLOW YELLOW UA APPEARANCE (test code=APPU) CLEAR CLEAR UA GLUCOSE DIPSTICK (test code=DGLUU) NORMAL MG/DL NORMAL UA BILIRUBIN DIPSTICK (test code=BILU) NEGATIVE MG/DL NEGATIVE UA KETONE DIPSTICK (test code=KETU) NEGATIVE MG/DL NEGATIVE UA SPECIFIC GRAVITY (test code=SGU) 1.015 1.003-1.030 UA BLOOD DIPSTICK (test code=THOMAS) NEGATIVE [place]/mm3 NEGATIVE UA PH DIPSTICK (test code=ISABEL) 6.0 5.0-9.0 UA PROTEIN DIPSTICK (test code=PROU) 15 MG/DL NEGATIVE UA UROBILINIOGEN DIPSTICK (test code=URO) NORMAL MG/DL NORMAL UA NITRITE DIPSTICK (test code=EBENEZER) NEGATIVE NEGATIVE UA LEUKOCYTE ESTERASE DIPSTICK (test NEGATIVE /mm3 NEGATIVE code=LEUU) UA CULTURE NEEDED? (test code=UACULT) Criteria Culture k UA [id number] 19:05:00 Test Item Value Reference Range Comments UA RBC (test code=RBCU) RBC/HPF 0-3 UA WBC (test code=XWBCU) WBC/HPF 0-5 UA EPITHELIAL CELLS (test code=EPIU) EPI/HPF FEW UA BACTERIA (test code=XBACU) NONE URINALYSIS [id number] 19:05:00 Test Item Value Reference Range Comments UA COLOR (test code=COLU) YELLOW YELLOW UA APPEARANCE (test code=APPU) CLEAR CLEAR UA GLUCOSE DIPSTICK (test code=DGLUU) NORMAL MG/DL NORMAL UA BILIRUBIN DIPSTICK (test code=BILU) NEGATIVE MG/DL NEGATIVE UA KETONE DIPSTICK (test code=KETU) NEGATIVE MG/DL NEGATIVE UA SPECIFIC GRAVITY (test code=SGU) 1.015 1.003-1.030 UA BLOOD DIPSTICK (test code=THOMAS) NEGATIVE [place]/mm3 NEGATIVE UA PH DIPSTICK (test code=ISABEL) 6.0 5.0-9.0 UA PROTEIN DIPSTICK (test code=PROU) 15 MG/DL NEGATIVE UA UROBILINIOGEN DIPSTICK (test code=URO) NORMAL MG/DL NORMAL UA NITRITE DIPSTICK (test code=EBENEZER) NEGATIVE NEGATIVE UA LEUKOCYTE ESTERASE DIPSTICK (test NEGATIVE /mm3 NEGATIVE code=LEUU) UA CULTURE NEEDED? (test code=UACULT) Criteria Culture Chk UA [id number] 19:05:00 Test Item Value Reference Range Comments UA RBC (test code=RBCU) RBC/HPF 0-3 UA WBC (test code=XWBCU) WBC/HPF 0-5 UA EPITHELIAL CELLS (test code=EPIU) EPI/HPF FEW UA BACTERIA (test code=XBACU) NONE COMPREHENSIVE METABOLIC [id number] 18:56:00 Test Item Value Reference Range Comments SODIUM (test code=NA) 140 MMOL/L 137-145 POTASSIUM (test code=K) 3.6 MMOL/L 3.5-5.1 CHLORIDE (test code=CL) 106 MMOL/L 98-107 CARBON DIOXIDE (test code=CO2) 27 MMOL/L 22-30 GLUCOSE (test code=GLU) 129 MG/DL 74-106 BLOOD UREA NITROGEN (test 36 MG/DL 7-17 code=BUN) GLOMERULAR FILTRATION RATE > 60 Reporting units: (test code=GFR) ml/min/1.73 m2 (Modified MDRD Formula)Reference Range: > or=60 ml/min/1.73 m2 CREATININE (test code=CREAT) 0.80 MG/DL 0.52-1.04 TOTAL PROTEIN (test code=PROT) 7.3 G/DL 6.3-8.2 ALBUMIN (test code=ALB) 3.8 G/DL 3.5-5.0 CALCIUM (test code=CA) 9.1 MG/DL 8.4-10.2 BILIRUBIN TOTAL (test < 0.1 MG/DL 0.2-1.3 code=BILT) SGOT/AST (test code=AST) 33 UNITS/L 14-36 SGPT/ALT (test code=ALT) 14 UNITS/L 9-52 ALKALINE PHOSPHATASE (test 78 UNITS/L 38-126 code=ALKP) CBC W/O [id number] 18:27:00 Test Item Value Reference Range Comments WHITE BLOOD CELL (test code=WBC) 18.3 K/MM3 3.8-9.8 RED BLOOD CELL (test code=RBC) 3.85 M/MM3 3.58-4.97 HEMOGLOBIN (test code=HGB) 11.1 G/DL 11.2-14.9 HEMATOCRIT (test code=HCT) 36.4 % 33.2-43.5 MEAN CELL VOLUME (test code=MCV) 95 fL 80.7-99.1 MEAN CELL HGB (test code=MCH) 28.8 pg 27.0-34.1 MEAN CELL HGB CONCETRATION (test code=MCHC) 30.5 % 32.2-35.7 RED CELL DISTRIBUTION WIDTH (test code=RDW) 15.2 % 12.1-15.2 PLATELET COUNT (test code=PLT) 227 K/MM3 129-368 IMMATURE GRANULOCYTE % (test code=IG%) 1.9 % 0.0-2.0 NEUTROPHIL # (test code=NT#) 15.3 K/mm3 2.0-7.6 IMMATURE GRANULOCYTE # (test code=IG#) 0.34 x10 3/uL 0-0.03 LYMPHOCYTE # (test code=LY#) 1.4 K/mm3 1.0-3.8 MONOCYTE # (test code=MO#) 0.97 K/mm3 0.1-0.8 EOSINOPHIL # (test code=EO#) 0.4 K/mm3 0.0-0.2 BASOPHIL # (test code=BA#) 0.04 K/mm3 0.0-0.2 NUCLEATED RBC # (test code=NRBC#) 0.0 K/mm3 0.0-0.1 POC VENOUS BLOOD [id number] 18:26:00 Test Item Value Reference Range Comments POC LACTIC ACID (test code=POCLAC) 1.68 MMOL/L 0.4-2.0 POC VENOUS BLOOD GAS PH (test code=POCPHV) 7.325 7.35-7.45 POC VENOUS BLOOD GAS PCO2 (test code=CCAHFF1D) 59.0 mmHg 35.0-45.0 POC VENOUS BLOOD GAS PO2 (test code=ADBPM9M) 19.0 mmHG 0-40 POC HCO3 VENOUS (test code=LIOQED6G) 30.7 MMOL/L 20-26 POC BASE EXCESS VENOUS (test code=POCBEV) 5 MMOL/L -3.0-3.0 POC O2 SATURATION VENOUS (test code=RBDC1GT) 24 % 72-77 - XR CHEST [id number] 18:16:00 Patient Name: RODNEY WORLEY Unit No: [id number] EXAMS: CPT CODE: [id number] XR CHEST 1V 30352 STUDY: Chest radiograph HISTORY: Altered mental status. COMPARISON: None TECHNIQUE: Frontal view of the chest. SITE: R16 FINDINGS: The cardiac silhouette is unremarkable. The aorta is atherosclerotic. The lungs are hyperaerated. The interstitium appears normally prominent. There is biapical pleural- parenchymal scarring. There is no focal consolidation, pleural effusion, or pneumothorax. There is a chronic appearing left humeral fracture at the surgical neck. IMPRESSION: No radiographic evidence for acute pulmonary abnormality. Prominent interstitial markings likely reflective of chronic lung disease in this patient with findings suggestive of COPD. Chronic appearing left surgical humeral neck fracture, correlate clinically. at 1816 Reported and signed by: Ry Brown MD CC: Mack Wilkinson MD; Jaime Ken Technologist: Sparkle Morris (RT) Transcrpt Date/Tm/Trnsp: 2018 (1815) [id number] Orig Print D/T: S: 10/10/2018 (1818) [facility] NAME: RODNEY WORLEY [address] PHYS: [id number] [place] [address] : 1940 AGE: 78 SEX: F LOC: BhavinKanuNATHAN PHONE #: [phone] EXAM DATE: 10/10/2018 STATUS: REG ER FAX # : [phone] RADIOLOGY NO: PAGE 1 Signed Report
--- NOTE | 2019-03-09 15:30 | RAD REPORT ---
EXAM DESCRIPTION: CT - CTHCSPWOC - 03/09/2019 2:59 pm CLINICAL HISTORY: Fall, head and neck injury COMPARISON: None. TECHNIQUE: Axial 5 mm thick images of the head were obtained. Axial 2 mm thick images of the cervic al spine were obtained with sagittal and coronal reconstruction images generated and reviewed. All CT scans are performed using dose optimization technique as appropriate and may include automated exposure control or mA/KV adjustment according to patient size. FINDINGS: No intracranial hemorrhage, mass, edema or acute intracranial finding. No acute cortical based infarc tion. 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 Si gnificant underlying atrophy and chronic ischemic changes are present. Ventricles are in proportion t o volume loss. No extra-axial fluid collections. Mastoid air cells and paranasal sinuses are clear. N o globe or orbit abnormality seen. C1 ring is intact. Lateral masses of C1 are normally positioned to the occipital condyles. C1 is rota [place] relative to the C2 body. Pivot point is the dens. No fracture is seen. Left lateral mass displace d anteriorly approximately 2-3 mm with the right lateral mass displaced posteriorly 2-3 mm. Normal po sitioning of the dens relative to the anterior arch C1. There is slight reversal of the usual cervical lordosis at the C5-6 disc level. There is significant disc space narrowing and endplate spurring at C5-6. No other alignment abnormality seen. There is a l eft lateral tilt of the cervical spine. No other significant disc space narrowing. Facet joint degene rative change is mild. Central canal detail is inherently limited. No paraspinal mass or hematoma. IMPRESSION: Patient has advanced atrophy and chronic ischemic change along with old right cerebral C VA change. No hemorrhage or acute intracranial finding. No cervical spine fracture seen. Patient has type I atlantoaxial rotary displacement. This can be ass ociated with both chronic conditions and acute trauma.
--- NOTE | 2019-03-09 15:34 | RAD REPORT ---
EXAM DESCRIPTION: CT - Pelvis Wo Cont - 03/09/2019 3:02 pm CLINICAL HISTORY: Fall, hip fracture COMPARISON: CT abdomen and pelvis February 2014 TECHNIQUE: Axial 2 millimeter thick images of the pelvis obtained with sagittal and coronal reformat peyton images generated and reviewed. The CT scan was performed using dose optimization techniques as appropriate to a performed exam incl uding one or more of the following: Automated exposure control, adjustment of the mA and/or kV accord ing to patient size (this includes techniques or standardized protocols for targeted exams where dose is matched to indication/reason for exam) and use of iterative reconstruction technique. FINDINGS: Lower lumbar degenerative change with no acute component. There is significant L5-S1 disc space narrowing. No sacral ala fracture seen. SI joint degenerative changes are mild. No fracture of the bony pelvis. Left hip prosthesis in place. No acute finding of the proximal left femur or left hi p joint. Transverse fracture is present at the base of the right femoral neck extending into the intertrochant dee portion of the femur. There is significant impaction of the femoral neck into the intertrochante huma region. Lesser trochanter remains intact. No pathologic bone process. Femoral neck shaft angle is significantly reduced. No AVN or focal femoral head abnormality. There is no dislocation of the femo ral head. No significant periarticular mass or hematoma. Soft tissues of the pelvis show no acute findings. IMPRESSION: Impacted right femur fracture involving the base of the femoral neck and intertrochanter ic region.
[2019-03-09] MEDS ORDERED: NA CHLORIDE 0.9% 1,000 ML ONE (15:37)
--- NOTE | 2019-03-09 15:47 | RAD REPORT ---
EXAM DESCRIPTION: RAD - Chest Single View - 03/09/2019 3:15 pm CLINICAL HISTORY: Preop chest examination, right hip fracture COMPARISON: December 2014 TECHNIQUE: AP portable chest image was obtained 1507 hours . FINDINGS: Lung volumes are low compared to the 2015 study. Patient has interstitial fibrotic change present. No focal consolidation or mass. Left base atelectasis changes are present. Shallow inspirati on and chronic pattern could mask early interstitial edema or infiltrate. Heart and vasculature are normal. No measurable pleural effusion and no pneumothorax. Osteopenic and degenerative changes are present. Fracture changes of the proximal left humerus appear to be chronic but are not fully assessed on the chest examination. No acute aortic findings suspected. IMPRESSION: Interstitial fibrotic lung pattern accentuated by shallow inspiration. Fibrotic changes do appear to be progressive when the shallow inspiration could also mask early inter stitial edema or infiltrate. No pneumothorax or pulmonary contusion. Proximal left humerus surgical neck fracture appears to be chronic but can be correlated with localiz ing symptoms. Left shoulder is only partially imaged on this study.
[2019-03-09 16:15] LABS: Absolute Lymphocytes (CBC) 0.6 K/uL (0.7-4.9); Basophils % 0.1 % (0-1.3); Hematocrit 33.4 % (36.0-45.0); Lymphocytes % 3.7 % (15.3-44.8); MPV 8.5 fL (7.6-11.3); RBC Red Blood Cell Count 4.14 M/uL (3.86-4.86)
[2019-03-09 16:18] LABS: Protime INR 1.67
[2019-03-09 16:35] LABS: Albumin 3.6 g/dL (3.4-5.0); Bilirubin Direct 0.1 mg/dL (0-0.2); Bilirubin Total 0.3 mg/dL (0.2-1.0); Potassium 4.1 mmol/L (3.5-5.1); Protein, Total 8.7 g/dL (6.4-8.2)
[2019-03-09 16:43] LABS: Anisocytosis 1+; Blood Morphology Comment NOTED (NOT SEEN); Platelet Estimate ADEQ; Urine White Blood Cell Casts OK
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
[2019-03-09] MEDS ORDERED: CEFTRIAXONE/SWI 1gm 1 GM/10 ML SYR ONE (17:51)
[2019-03-09 18:13] LABS: Urine Bacteria >50 /HPF (<20); Urine Culture Reflex Order REFLEXED; Urine Mucus 2+ /HPF (NONE SEEN); Urine RBC <5 /HPF (NONE SEEN)
[2019-03-09 18:28] LABS: Urine Blood NEGATIVE (NEG); Urine Glucose NEGATIVE (NEG); Urine Protein NEGATIVE (NEG); Urine pH 5.5 (5.0-7.0)
[2019-03-09 21:07] VITALS: BMI 15.7
[2019-03-09] MEDS ORDERED: NA CHLORIDE 0.9% 250 ML IV SCH (21:55)
[2019-03-09] MEDS ORDERED: NA CHLORIDE 0.9% 1,000 ML IV SCH (21:55)
[2019-03-09] MEDS ORDERED: ONDANSETRON 4 MG/2 ML VIAL IV PRN (21:55)
[2019-03-09] MEDS: MORPHINE 2 MG/ML SYR IV PRN (23:49)
[2019-03-10] MEDS ORDERED: NA CHLORIDE 0.9% 0 ML ONE (00:15)
[2019-03-10] MEDS ORDERED: NA CHLORIDE 0.9% 500 ML ONE (00:28)
--- NOTE | 2019-03-10 03:42 | HP ---
Date of Admission: 03/09/2019 Primary Care Physician: Dr. Kidd. Chief Complaint: Hip pain. Code Status: DNR. The patient is resident of long-term, has an [id number] DNR. History Of Present Illness: The patient is a 78-year-old female, resident of nursing facility with p ast medical history of dementia, hypertension, history of DVT in the right left arm, on Eliquis, who was in her usual state of health until she complained of hip pain. The patient had an x-ray done fro m the nursing facility, was found to have a fracture of the right hip. There was no fall, likely is a pathologic fracture. 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 The patient's symptoms are constant, moderate, progressively worsening. Complains of poli n on the right lower extremity, has some swelling. In the ER, her workup revealed elevated white blo od cell count of 15.5. INR was elevated at 1.67. Imaging study including pelvis CT showed impacted right trochanteric fracture. The patient was then referred for admission. She was given pain medica tion. Head CT cervical spine was negative for any acute intracranial or cervical spine issue. She d id have a type 1 atlantoaxial rotatory displacement. When seen in the ER, she was awake, alert, orie nted to self, no family present at the bedside, did not complain of significant amount of pain. Past Medical History: Dementia, hypertension, history of DVT in the left upper extremity, anemia, CV A with right-sided weakness. Surgeries: Hysterectomy, joint replacement. Allergies: NO KNOWN DRUG ALLERGIES. Medications: As per medication reconciliation list. Social History: The patient is a former smoker. No current alcohol use or illicit drug use. Reside nt of long-term. Family History: Noncontributory in this 78-year-old female. Physical Examination: Vital Signs: Blood pressure 151/49, pulse 102, respirations 17, temperature 99.1, O2 84% on room air , improved to 96% on 2 L. General: Awake, alert, oriented to self only in some mild distress due to pain. Elderly female, sandy ears older than stated age. Frail, cachectic. HEENT: Normocephalic, atraumatic. PERRLA. EOMI. Dry mucous membranes. Poor dentition. Conjuncti vae are anicteric. Neck: Supple. No JVD. Trachea midline. CV: S1, S2. Regular rate and rhythm. Peripheral pulses present. Respiratory: Diminished breath sounds. No significant wheezing or stridor. No use of accessory mus cles. Gastrointestinal: Abdomen is soft, nontender, nondistended. Positive bowel sounds. Extremities: No clubbing or cyanosis. The patient has edema of the right lower extremity. No calf tenderness. Neuro: Cranial nerves 2-12 intact grossly. Unable to properly assess strength. The patient has con tracture of the left arm. Speech is normal. Right lower extremity unable to properly assess due to fracture. Musculoskeletal: Right lower extremity shortened, rotated. Laboratory Data: UA, pending. Sodium 141, potassium 4.1, chloride 104, CO2 30, BUN 29, creatinine 0 .86, glucose 144, calcium 9.5. INR 1.67. WBC 15.5, H and H 10.5 and 33.4, platelets 194, neutrophil s 92%. Imaging Studies: CT pelvis without contrast shows impacted right femur fracture involving the base o f the femoral neck and intertrochanteric region. Chest x-ray personally reviewed shows interstitial fibrotic lung pattern accentuated by shallow inspiration. Fibrotic changes do not appear to be progr essive when the shallow inspiration could mask early interstitial edema or infiltrate. No pneumothor ax or pulmonary contusion. Proximal left humerus surgical neck fracture appears to be chronic, but c an be correlated with localizing symptoms. CT abdomen and pelvis shows impacted right femur fracture involving the base of the femoral neck and intertrochanteric region. Left hip prosthesis in place. CT neck and cervical spine shows no hemorrhage or acute intracranial finding, advanced atrophy and c hronic ischemic changes along with old right cerebral CVA change, type 1 atlantoaxial rotatory displa cement. Assessment And Plan: A 78-year-old female with: 1.Right intertrochanteric impacted fracture initial encounter closed. The patient may not be the be st surgical candidate. I spoke with Dr. Cross, who recommends discussing first with the family and see if the patient's pain can be managed for now. We will reverse Eliquis, give FFP, hold Eliquis fo r now in anticipation of possible surgery. The patient is DNR. 2.Left humerus fracture appears to be chronic. The patient does have contracture of that arm due to old CVA. No history of recent trauma or falls. 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 We will need to be evaluated for intubation. 4.History of left arm DVT, on Eliquis. We will hold for now and monitor due to hip fracture, need f or surgery. 5.Anemia, normocytic, hypochromic. The patient has history of chronic anemia. We will continue to monitor H and H. 6.Leukocytosis with neutrophilia, unclear etiology, may have UTI. We will check UA. Chest x-ray do es not show any acute infiltrate. No pulmonary symptoms at this time. 7.Pulmonary fibrosis. 8.Dementia, Alzheimer's type, without behavioral disturbance. 9.Essential hypertension. Resume home medications as appropriate. Admit the patient to med-surg, place as inpatient. Length of stay, greater than 2 midnights. Codie orta poor prognosis. /FILOMENA Voice ID: [id number]
[2019-03-10] MEDS ORDERED: DIPHENHYDRAMINE 50 MG/ML VIAL IV ONE (04:12)
[2019-03-10] MEDS ORDERED: METHYLPREDNISOLONE 125 MG INJ IV ONE (04:13)
[2019-03-10 05:37] LABS: Absolute Lymphocytes (CBC) 2.8 K/uL (0.7-4.9); Basophils % 0.2 % (0-1.3); Hematocrit 31.7 % (36.0-45.0); Lymphocytes % 20.9 % (15.3-44.8); MPV 8.8 fL (7.6-11.3); Monocytes % 5.9 % (3.3-12.3); RBC Red Blood Cell Count 3.98 M/uL (3.86-4.86)
[2019-03-10 05:57] LABS: Albumin 3.2 g/dL (3.4-5.0); Bilirubin Total 0.5 mg/dL (0.2-1.0); Potassium 3.6 mmol/L (3.5-5.1); Protein, Total 7.6 g/dL (6.4-8.2)
[2019-03-10] MEDS ORDERED: HOME MED 1 EA UNK (Ipratropium/Albuterol Sulfate [Iprat-Albut 0.5-3(2.5) Mg/3 Ml] 3 ML) IH PRN (07:57)
[2019-03-10 08:54] LABS: Protime INR 1.41
[2019-03-10] MEDS: NYSTATIN PWDR 100000 UNIT/GM TOP SCH ×2 (08:57→17:27)
[2019-03-10] MEDS: FUROSEMIDE 20 MG TABLET PO SCH (08:57)
[2019-03-10] MEDS: POTASSIUM CL SA 10 MEQ TAB PO SCH (08:58)
[2019-03-10] MEDS ORDERED: POTASSIUM CL SA 10 MEQ TAB PO ONE (09:00)
[2019-03-10] MEDS ORDERED: CEFTRIAXONE 1 GM/NS 50 ML 1 GM/50 ML BAG IV SCH (09:00)
[2019-03-10] MEDS ORDERED: CEFTRIAXONE/SWI 1gm 1 GM/10 ML SYR IV SCH (09:00)
[2019-03-10] MEDS ORDERED: clonazePAM 1 MG TAB PO SCH (09:00)
--- NOTE | 2019-03-10 09:58 | EKG ---
Test Date: 2019-03-09 Test Time: 16:10:42 Vacuum System Tester: FE MEASUREMENT RESULTS: Intervals: Rate: 100 VA: 128 QRSD: 56 QT: 352 QTc: 454 [place]: P: 103 VA: 128 QRS: 24 T: 91 INTERPRETIVE STATEMENTS: Normal sinus rhythm Low voltage QRS Septal infarct, age undetermined Abnormal ECG Compared to ECG 03/15/2014 21:04:04 Low QRS voltage now present Myocardial infarct finding still present Electronically Signed On 03-10-19 09:57:24 CDT by Santiago Serrano
--- NOTE | 2019-03-10 11:32 | RAD REPORT ---
EXAM DESCRIPTION: RAD - Femur Right - 03/10/2019 10:39 am CLINICAL HISTORY: HIP TO KNEE,POSS. DISTAL HARDWARE AND FX PATTERN Trauma, pain COMPARISON: Pelvis Wo Cont dated 03/09/2019 FINDINGS: Proximal right femoral fracture is seen with varus angulation. Hardware is present in the distal femur with multiple screws identified. Extensive vascular stenting is noted.
--- NOTE | 2019-03-10 12:58 | CON ---
Date of Consultation: 03/09/2019 This consultation is requested by Dr. Fariba Cotton. Reason For Consultation: Right hip fracture. History Of Present Illness: This is a 78-year-old female brought by EMS to the Emergency Department had complaints at her skilled nursing of right hip pain. There was no history of falling. The patient is bedfast and nonambulatory and this most likely is a pathological fracture secondary to osteoporosis during normal nursing care. Allergies: THE PATIENT HAS NO KNOWN ALLERGIES. 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 The patient has a do not resuscitate order. Review of Systems: Negative for 10-system review. The patient has an abnormal posture with her neck turned slightly to the right. She indicates this is a chronic condition that has been present for years and causes her some discomfort. She is in bed with pillow support under the right knee and between the knees. The patient can wiggle her toes, but has a chronic flexion contracture of the ankle limiting dorsiflexion. There is swelling and pain at the lateral aspect of the right hip. Pain is with any motion or palpation. The patient does not seem in distress at rest and describes her pain as bothersome. Physical Examination: Vital Signs: Stable. HEENT: Within normal limits. Neck: As mentioned, slightly tilted to the right with spasm or stretch on the right trapezius insertion area. Chest: Clear to auscultation. Heart: Has a regular rate and rhythm. Abdomen: Soft and nontender. Active bowel sounds are present. Genital and Rectal: Deferred. X-ray: Imaging shows an impacted basicervical fracture of the right proximal femur. This is a fracture that extends into the intertrochanteric area without displacement of the lesser trochanter as noted on CT scan of the pelvis. The CT of the head and neck revealed advanced atrophy and chronic ischemic changes with an old right CVA noted. There was no acute hemorrhage or intracranial finding. No C-spine fractures were seen. The patient has type 1 atlantoaxial rotatory displacement that by the patient's history is most likely chronic in nature. Assessment: Right hip impacted intertrochanteric fracture. Plan: This patient is comfortable with pillow splinting at the present time. It is recommended that she have plain film x-ray at least in the AP view. There is an incision along the distal lateral femoral area and hardware is most likely in that area. She does have a total hip prosthesis for the left hip. The right hip displacement can better be evaluated with plain films that are now ordered. This patient had a hypotensive episode associated with transfusion of platelets last night. She is a do not resuscitate and nonambulatory and may best be treated with pillow splinting for this impacted intertrochanteric hip fracture. SUNITA/FILOMENA Voice ID: [id number] Report ID: [id number] URIEL
[2019-03-10] MEDS: ALBUTEROL 2.5 MG/3 ML NEB SOL NEB SCH ×2 (13:55→20:00)
--- NOTE | 2019-03-10 14:27 | PN ---
Date of Progress Note: 03/10/2019 Subjective: The patient is seen and examined. Chart reviewed and case discussed with RN. The patient had reaction to fresh frozen plasma last night with hypotension and rash. The patient improved with symptomatic treatment. The patient complains of pain. No family at the bedside. Medications: List reviewed. Physical Examination: Vital Signs: Temperature 98.8, heart rate 100, blood pressure 149/53, respirations 16, O2 100% on 2 L via nasal cannula. General: Awake, alert, oriented to self, not in any acute distress. Frail, cachectic female. BMI 15. CV: S1 and S2. Regular rate and rhythm. Peripheral pulses present. Respiratory: Moving air well bilaterally. No wheezing. Gastrointestinal: Abdomen is soft, nontender, nondistended. Positive bowel sounds. Extremities: No clubbing or cyanosis. The patient has some edema of the right lower extremity. Musculoskeletal: Tenderness to palpation in the right hip. Decreased range of motion. Neurologic: The patient has weakness of the left upper extremity with contracture. Laboratory Data: Sodium 144, potassium 3.6, chloride 109, CO2 26, BUN 25, creatinine 0.77, glucose 154, calcium 8.6, INR 1.41. WBC 13.5, H and H 10.2 and 31.7, platelets 198. UA; positive nitrite, 3+ leukocyte esterase, 20-50 WBCs, greater than 50 bacteria. Urine culture growing out 4+ gram-negative rods. Assessment And Plan: A 78-year-old female with: 1. Right intertrochanteric impacted fracture, nondisplaced, closed fracture. This initial encounter. We will discuss further with Dr. Cross regarding surgical intervention. The patient is nonambulatory. Her DNR has very limited quality of life due to her severe dementia and other comorbidities. We will discuss with family regarding options for nonsurgical treatment. The patient is DNR. 2. Left humerus fracture, chronic, likely pathologic. The patient has contracture of the arm due to cerebrovascular accident. 3. Acute cystitis without hematuria. We will continue with Rocephin. Urine culture growing out 4+ gram-negative rods. We will follow up with ID and sensitivity. 4. Atlantoaxial malrotation, likely chronic. If the patient needs to be placed under general anesthesia, she will need CT for further evaluation of C- spine. 5. History of left arm deep venous thrombosis, on Eliquis, currently on hold due to hip fracture and possible need for surgery. INR trending down. The patient received FFP. 6. Normocytic hypochromic anemia, likely anemia of chronic disease. Monitor H and H, stable. Transfuse for H and H less than 7. 7. Pulmonary fibrosis. 8. Alzheimer's dementia, early onset without behavioral disturbance, stable. 9. Essential hypertension, stable. 10. Acute reaction to blood products. The patient became hypotensive, developed a rash, was treated symptomatically. Currently blood pressure is improved. We will cancel second unit of FFP. Plan: pending on Orthopedic recommendations /FILOMENA Voice ID: [id number] Report ID: [id number] URIEL
[2019-03-10] MEDS: CEFTRIAXONE/SWI 1gm 1 GM/10 ML SYR IV SCH (17:26)
[2019-03-10] MEDS: ENSURE ENLIVE 237 ML CAN PO SCH (20:23)
[2019-03-10] MEDS: JUVEN PACKET PO SCH (20:23)
[2019-03-10] MEDS: MORPHINE 2 MG/ML SYR IV PRN (21:59)
--- NOTE | 2019-03-10 22:16 | EKG ---
Test Date: 2019-03-10 Test Time: 04:06:18 Secondary History Teacher: RT-O MEASUREMENT RESULTS: Intervals: Rate: 123 WI: 130 QRSD: 70 QT: 356 QTc: 509 Trimble: P: 90 WI: 130 QRS: 39 T: 42 INTERPRETIVE STATEMENTS: Sinus tachycardia Right atrial enlargement Pulmonary disease pattern Marked ST abnormality, possible inferior subendocardial injury Abnormal ECG Compared to ECG 03/09/2019 16:10:42 Atrial abnormality now present ST (T wave) deviation now present Sinus rhythm no longer present Myocardial infarct finding no longer present Electronically Signed On 03-10-19 22:15:18 CDT by Santiago Serrano
[2019-03-10] MEDS: TRAMADOL HCL 50 MG TAB PO PRN (23:24)
[2019-03-11] MEDS: NYSTATIN PWDR 100000 UNIT/GM TOP SCH ×3 (01:00→16:51)
[2019-03-11] MEDS: ALBUTEROL 2.5 MG/3 ML NEB SOL NEB SCH ×4 (02:00→20:00)
[2019-03-11] MEDS: MORPHINE 2 MG/ML SYR IV PRN ×4 (02:24→21:51)
[2019-03-11 05:54] LABS: Absolute Lymphocytes (CBC) 1.1 K/uL (0.7-4.9); Basophils % 0.1 % (0-1.3); Lymphocytes % 8.5 % (15.3-44.8); MPV 9.1 fL (7.6-11.3); RBC Red Blood Cell Count 3.25 M/uL (3.86-4.86)
[2019-03-11 05:58] LABS: Magnesium 2.1 mg/dL (1.8-2.4); Potassium 3.7 mmol/L (3.5-5.1)
[2019-03-11] MEDS: POTASSIUM CL SA 10 MEQ TAB PO SCH (08:50)
[2019-03-11] MEDS: FUROSEMIDE 20 MG TABLET PO SCH (08:50)
[2019-03-11] MEDS: JUVEN PACKET PO SCH ×2 (08:51→21:58)
[2019-03-11] MEDS: ENSURE ENLIVE 237 ML CAN PO SCH ×2 (08:51→21:58)
--- NOTE | 2019-03-11 15:21 | P.PN ---
Date of Service: 03/11/19 S: Patient found in bed visiting with her sister. She seems currently at ease and comfortable; she drifts off during our conversation. O: Vital signs stable except for runs of sinus tachycardia. Pain chart indicates 8, 0, 0, 0, 8, 0/10 intensity. Hgb 8.3, down from 10.2 after re- hydration. WBC still elevated at 13.2 with Neut 80%. Urine culture is positive for Gram negative rods. Shift summary noted sinus tach on monitor, Episodes of confusion, flagged sepsis, patient stable with pain meds times three. Protime has dropped from 17.3 to 16.4 with INR Acceptable at 1.41. Patient appears to be comfortable with pillows between her legs and under her knees. X-rays taken yesterday show acceptable position of R hip fracture pattern, relatively stable with impalement of the base of the calcar into the intertrochanteric space. A: The patient has been and will continue to be maintained at non-ambulatory bed rest. Consideration for surgery hinges on her discomfort and the familys comfort with non-operative management. discussed all issues with patients sister at bedside, demetrio pictures, etc., but have yet to catch daughter who has power of divorce attorney for discussion in person or by phone. The patients hemoglobin of 8.3 is hindrance for general anesthesia if the family decides for or demands surgery. There was some difficulty with platelet transfusion causing hypertension and cessation of transfusion effort. no need for a transfusion unless hemoglobin drops below seven if nonoperative management is chosen.
[2019-03-11] MEDS: CEFTRIAXONE/SWI 1gm 1 GM/10 ML SYR IV SCH (16:50)
--- NOTE | 2019-03-11 17:00 | PN ---
Date of Progress Note: 03/11/2019 Subjective: The patient is seen and examined. Chart reviewed and case discussed with RN and Dr. Cross. The patient is nonsurgical due to her nonambulatory status, comorbid conditions, dementia. The patient flagging for sepsis due to elevated heart rate, high white blood cell count. We will obtain lactate and procalcitonin. Medications: List reviewed. Physical Examination: Vital Signs: Temperature 99, heart rate 112, blood pressure 143/60, respirations 16, O2 93% on room air. General: Awake, alert, oriented x3. Elderly female, frail, some mild distress. CV: S1, S2. Regular rate and rhythm. Peripheral pulses present. Respiratory: Moving air well bilaterally. No wheezing. Gastrointestinal: Abdomen is soft, nontender, nondistended. Positive bowel sounds. Extremities: No clubbing or cyanosis. The patient has some mild edema of the right lower extremity. Neuro: Left-sided weakness with contractures of the left arm. Laboratory Data: WBC 13.2, hemoglobin and hematocrit 8.3 and 26, platelets 170 , neutrophils 80%. Sodium 143, potassium 3.7, chloride 108, CO2 29, BUN 41, creatinine 0.84, glucose 149. Lactate pending. Calcium 8.1, magnesium 2.1. Procalcitonin pending. Urine culture growing out 4+ gram-negative rods. Assessment: A 78-year-old female with: 1. Nondisplaced right intertrochanteric fracture, initial encounter closed. The patient is DNR, severe dementia, nonambulatory status. No surgical intervention planned at this time. We will discuss further with Dr. Cross. No family present at bedside. 2. Left humerus fracture, chronic, likely pathologic. 3. Pathologic fracture due to osteoporosis. 4. Acute cystitis without hematuria secondary to gram-negative rods. We will continue with Rocephin. Follow up on ID and sensitivity. 5. Atlantoaxial malrotation, likely chronic. 6. History of left arm DVT. We will resume Eliquis. 7. Acute on chronic anemia, likely due to blood loss from hip fracture. We will continue to monitor and transfuse for hemoglobin less than 7. 8. Pulmonary fibrosis. 9. Alzheimer's dementia, early onset without behavioral disturbance, stable. 10. Essential hypertension, stable. Plan: Continue antibiotics. Likely discharge in the next 24 hours with pain control back to nursing facility. /FILOMENA Voice ID: [id number] Report ID: [id number] URIEL
[2019-03-12] MEDS: NYSTATIN PWDR 100000 UNIT/GM TOP SCH ×3 (01:00→16:46)
[2019-03-12] MEDS: ALBUTEROL 2.5 MG/3 ML NEB SOL NEB SCH ×4 (02:00→20:15)
[2019-03-12 04:52] LABS: Basophils % 0.2 % (0-1.3); Eosinophils % 1.4 % (0-4.4); Hematocrit 26.9 % (36.0-45.0); Lymphocytes % 16.4 % (15.3-44.8); MPV 8.7 fL (7.6-11.3); Monocytes % 10.3 % (3.3-12.3); RBC Red Blood Cell Count 3.38 M/uL (3.86-4.86)
[2019-03-12 05:09] LABS: Albumin 2.9 g/dL (3.4-5.0); Bilirubin Total 0.2 mg/dL (0.2-1.0); Potassium 3.8 mmol/L (3.5-5.1); Protein, Total 7.4 g/dL (6.4-8.2)
[2019-03-12] MEDS ORDERED: IPRATROPIUM BROM 0.5MG/2.5ML IH PRN (07:49)
[2019-03-12] MEDS ORDERED: ALBUTEROL 2.5 MG/3 ML NEB SOL IH PRN (07:49)
[2019-03-12] MEDS: POTASSIUM CL SA 10 MEQ TAB PO SCH (08:31)
[2019-03-12] MEDS: FUROSEMIDE 20 MG TABLET PO SCH (08:31)
[2019-03-12] MEDS: MORPHINE 2 MG/ML SYR IV PRN ×2 (08:36→13:33)
[2019-03-12] MEDS: JUVEN PACKET PO SCH ×2 (08:45→20:22)
[2019-03-12] MEDS: ENSURE ENLIVE 237 ML CAN PO SCH ×2 (08:45→20:22)
[2019-03-12] MEDS ORDERED: POTASSIUM 25 MEQ EFFERV TAB PO ONE (09:00)
[2019-03-12] MEDS: APIXABAN 5 MG TABLET PO SCH ×2 (09:24→20:22)
[2019-03-12] MEDS: CEFTRIAXONE/SWI 1gm 1 GM/10 ML SYR IV SCH (16:46)
--- NOTE | 2019-03-12 17:49 | P.PN ---
Date of Service: 03/12/19 S: Patient found in bed with pillow splint intact turned to her right side. She was at ease and comfortable; she describes pain but without animation or pain behavior. O: Vital signs stable except for persistent sinus tachycardia. Pain chart indicates 0, 0, 0, 0, 0, 0/10 intensity. Hgb 8.5, up slightly from 8.3. WBC is improving at 12.1 with Neut 72%. Urine culture was positive for Providencia stuartii 4+ gram-negative rods sensitive to Bactrim ampicillin and most cephalosporins, but resistant to tetracycline nitrofurantoin Augmentin gentamicin cefazolin Levaquin Cipro and tobramycin. Patient is comfortable with pillows between her legs and under her knees. X-rays have shown acceptable position of R hip fracture pattern, relatively stable with impalement of the base of the calcar into the intertrochanteric space. chest x-ray done yesterday revealed a proximal humerus impacted surgical neck fracture that is old and healed. The patient has no tenderness to palpation of that area and no use of that left upper extremity that has curled up from having a stroke. A: The patient has been and will continue to be maintained at non-ambulatory bed rest. After discussing the case with Dr. Fariba Cotton M.D. today, we are planning non-operative management. I still have yet to catch daughter who has power of insurance defense attorney for discussion in person or by phone.
[2019-03-12] MEDS: ACETAMINOPHEN 500 MG TAB PO PRN (20:53)
--- NOTE | 2019-03-12 22:23 | PN ---
Date of Progress Note: 03/12/2019 Subjective: Patient is seen and examined. Chart reviewed and case discussed with RN and Dr. Cross. Daughter finally able to be reached. She is at the bedside. She is asking about the possibility o f surgery; if it will help, the patient ambulate. I explained to her that the patient is a poor surg ical candidate and has a poor quality of life. However, she would like orthopedic opinion. Medicati ons list reviewed. Physical Examination: Vital Signs: Temperature 97.7, heart rate 116, blood pressure 166/74, respirations 16, O2 91% on 1 L via nasal cannula. General: Awake, alert, oriented x1 elderly female, frail, appears older than stated age, cachectic. BMI 15. Cardiovascular: S1, S2. Sinus tachycardia. Respiratory: Diminished breath sounds at the bases, otherwise moving air well. No wheezing. Gastrointestinal: Abdomen is soft, nontender, nondistended. Positive bowel sounds. Extremities: No clubbing, cyanosis. Mild edema of the right lower extremity. Musculoskeletal: Right lower extremity shortened, rotated. Neurologic: Patient has left upper extremity contracture. Laboratory Data: Sodium 140, potassium 3.8, chloride 103, CO2 of 31, BUN 58, creatinine 0.71, glucos e 123. Lactate 1.2, calcium 8.4, albumin 2.9. WBC 12.1, H and H 8.5 and 26.9, platelets 166, neutro phils 71%. Urine culture growing Providencia sensitive to Rocephin. Assessment And Plan: A 78-year-old female with: 1.Nondisplaced right intertrochanteric fracture, initial encounter closed, currently nonambulatory. DNR for quality of life. No surgical intervention planned. However, daughter is now wanting to kno w if surgical intervention will help with her rehab. We will discuss further with Dr. Cross. 2.Left humerus fracture, chronic pathologic secondary to her osteoporosis. 3.Pathologic fracture due to osteoporosis of the right hip. 4.Acute cystitis without hematuria secondary to Providencia. We will continue with Rocephin. White count is decreasing. We will continue to monitor. 5.Atlantoaxial malrotation, likely chronic. 6.History of left arm deep venous thrombosis. Resume Eliquis. 7.Acute on chronic anemia, likely due to anemia from blood loss from her hip fracture. We will cont inue to monitor. H and H is stable, improving. 8.Pulmonary fibrosis, stable. 9.Alzheimer dementia, early onset without behavioral disturbance, stable. 10.Essential hypertension, stable. Plan: We will discuss further with Orthopedics regarding possibility of surgery. Patient remains a poor candidate for surgery. Again, she will have to be taken off the Eliquis. She will also need fu rther evaluation and possible CT scan of the cervical spine to evaluate her atlantoaxial malrotation prior to intubation. I would not recommend surgery for this patient. /FILOMENA Voice ID: [id number] Report ID: [id number]
[2019-03-13] MEDS: NYSTATIN PWDR 100000 UNIT/GM TOP SCH ×3 (00:13→17:00)
[2019-03-13] MEDS: ALBUTEROL 2.5 MG/3 ML NEB SOL NEB SCH ×4 (01:20→20:10)
[2019-03-13 06:39] LABS: Absolute Lymphocytes (CBC) 1.9 K/uL (0.7-4.9); Basophils % 0.2 % (0-1.3); Eosinophils % 1.3 % (0-4.4); Lymphocytes % 19.3 % (15.3-44.8); MPV 8.6 fL (7.6-11.3); Monocytes % 10.9 % (3.3-12.3); RBC Red Blood Cell Count 3.24 M/uL (3.86-4.86)
[2019-03-13 06:54] LABS: Albumin 2.7 g/dL (3.4-5.0); Bilirubin Total 0.3 mg/dL (0.2-1.0); Potassium 3.8 mmol/L (3.5-5.1); Protein, Total 7.5 g/dL (6.4-8.2)
[2019-03-13] MEDS: JUVEN PACKET PO SCH ×2 (08:41→21:21)
[2019-03-13] MEDS: ENSURE ENLIVE 237 ML CAN PO SCH ×2 (08:41→21:20)
[2019-03-13] MEDS: POTASSIUM CL SA 10 MEQ TAB PO SCH (08:41)
[2019-03-13] MEDS: APIXABAN 5 MG TABLET PO SCH ×2 (08:41→21:20)
[2019-03-13] MEDS: FUROSEMIDE 20 MG TABLET PO SCH (08:42)
[2019-03-13] MEDS: MORPHINE 2 MG/ML SYR IV PRN ×2 (11:34→18:04)
--- NOTE | 2019-03-13 13:24 | P.PN ---
Date of Service: 03/13/19 S: Patient found in bed with pillow splint intact, turned to her right side. She was at ease and comfortable; she describes pain but without animation or pain behavior. No family present; line busy as per each effort to reach daughter by phone. O: Vital signs stable except for persistent sinus tachycardia. Pain chart indicates 0, 5, 0, 0, 0, 8/10 intensity. Hgb 8.5, stable. WBC continues to improve at 10.1 with Neut 68%. Urine culture was positive for Providencia stuartii 4+ gram-negative rods. She is on rocephin. Patient comfortable with pillows between her legs and under her knees. X-rays have shown acceptable position of R hip fracture, relatively stable with impalement of the base of the calcar into the intertrochanteric space. Chest x-ray revealed an old proximal humerus impacted surgical neck fracture that has no tenderness to palpation of that area. There is no use of that left upper extremity curled up from having a stroke. Patient indicates she usually has a sling, but left it at the house. A: The patient has been and will continue to be maintained at non-ambulatory bed rest. The plan continues for non-operative management. I still have yet to catch daughter who has power of real estate attorney for discussion in person or by phone.
[2019-03-13] MEDS: TRAMADOL HCL 50 MG TAB PO PRN (14:43)
--- NOTE | 2019-03-13 16:00 | P.PN ---
Subjective Date of Service: 03/13/19 Patient seen and examined at bedside. Sister at bedside. Daughter, MORIAH not at bedside. Chart reviewed and case discussed with nursing staff. Patient states she is doing well, alert oriented. States she does have pain but In no acute distress. Sister at bedside states that they would not like patient to go back to [place] Review of Systems 10-point ROS is otherwise unremarkable Physical Examination - Vital Signs Temperature: 98.0 F Blood Pressure: 132/57 Pulse: 107 Respirations: 18 Pulse Ox (%): 99 - Physical Exam General: Alert, In no apparent distress, Oriented x3 HEENT: Atraumatic, PERRLA, EOMI Respiratory: Clear to auscultation bilaterally, Normal air movement Cardiovascular: Normal S1 S2, Irregular heart rate/rhythm (Tachycardic) Gastrointestinal: Normal bowel sounds, No tenderness Musculoskeletal: Contractures, Other (Right lower extremity shortened, rotated; also noted to have upper extremity contractures) Assessment And Plan - Plan A 78-year-old female with: Nondisplaced right intertrochanteric fracture, initial encounter closed, currently nonambulatory. DNR for quality of life. No surgical intervention planned. Continue with non ambulatory bed rest. Continue with pain control Left humerus fracture, chronic pathologic secondary to her osteoporosis. Pathologic fracture due to osteoporosis of the right hip. Acute cystitis without hematuria secondary to Providencia. We will continue with Rocephin. White count is decreasing. We will continue to monitor. 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 Resume Eliquis. Acute on chronic anemia, likely due to anemia from blood loss from her hip fracture. We will continue to monitor. H and H is stable, improving. Pulmonary fibrosis, stable. 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 Essential hypertension, stable. Plan: Patient continues to remain a poor candidate for surgery. [facility] however family would not like her to return there. Social work consulted for disposition/placement. Will continue with pain management along with IV antibiotics for UTI. Possible discharge to a retirement in the next 24-48 hr.
[2019-03-13] MEDS: CEFTRIAXONE/SWI 1gm 1 GM/10 ML SYR IV SCH (17:03)
[2019-03-14] MEDS: NYSTATIN PWDR 100000 UNIT/GM TOP SCH ×3 (00:23→16:58)
[2019-03-14] MEDS: ALBUTEROL 2.5 MG/3 ML NEB SOL NEB SCH ×4 (01:35→20:00)
[2019-03-14] MEDS: TRAMADOL HCL 50 MG TAB PO PRN ×2 (03:04→16:50)
[2019-03-14 06:23] LABS: Potassium 4.5 mmol/L (3.5-5.1)
[2019-03-14] MEDS: JUVEN PACKET PO SCH ×2 (09:00→20:40)
[2019-03-14] MEDS: POTASSIUM CL SA 10 MEQ TAB PO SCH (09:26)
[2019-03-14] MEDS: APIXABAN 5 MG TABLET PO SCH ×2 (09:26→20:39)
[2019-03-14] MEDS: FUROSEMIDE 20 MG TABLET PO SCH (09:26)
[2019-03-14] MEDS: ENSURE ENLIVE 237 ML CAN PO SCH ×2 (09:28→20:40)
[2019-03-14] MEDS: CEFTRIAXONE/SWI 1gm 1 GM/10 ML SYR IV SCH (16:50)
--- NOTE | 2019-03-14 18:00 | P.PN ---
Subjective Date of Service: 03/14/19 Patient seen and examined at bedside. Sister at bedside. Daughter, MORIAH not at bedside. Chart reviewed and case discussed with nursing staff. Patient states she is doing well, alert oriented. States she does have pain but In no acute distress. Review of Systems 10-point ROS is otherwise unremarkable Physical Examination - Vital Signs Temperature: 97.2 F Blood Pressure: 162/72 Pulse: 98 Respirations: 20 Pulse Ox (%): 96 - Physical Exam General: Confused Respiratory: Clear to auscultation bilaterally, Normal air movement Cardiovascular: Regular rate/rhythm, Normal S1 S2 Musculoskeletal: Contractures Assessment And Plan - Plan A 78-year-old female with: Nondisplaced right intertrochanteric fracture, initial encounter closed, currently nonambulatory. DNR for quality of life. No surgical intervention planned. Continue with non ambulatory bed rest. Continue with pain control Left humerus fracture, chronic pathologic secondary to her osteoporosis. Pathologic fracture due to osteoporosis of the right hip. Acute cystitis without hematuria secondary to Providencia. We will continue with Rocephin. White count is decreasing. We will continue to monitor. 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 Resume Eliquis. Acute on chronic anemia, likely due to anemia from blood loss from her hip fracture. We will continue to monitor. H and H is stable, improving. Pulmonary fibrosis, stable. 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 Essential hypertension, stable. Plan: Patient continues to remain a poor candidate for surgery. [facility] family would not like her to return there. Social work consulted for disposition/placement. Will continue with pain management along with IV antibiotics for UTI. Possible discharge to a jail in the next 24-48 hr.
[2019-03-15] MEDS: NYSTATIN PWDR 100000 UNIT/GM TOP SCH ×2 (00:06→09:50)
[2019-03-15] MEDS: ALBUTEROL 2.5 MG/3 ML NEB SOL NEB SCH ×3 (01:20→14:05)
[2019-03-15] MEDS: JUVEN PACKET PO SCH (09:00)
--- NOTE | 2019-03-15 09:37 | P.PN ---
Date of Service: 03/14/19 S: Patient in bed with pillow splint in place, at ease and comfortable; daughter present to discuss management issues; phone line was constantly busy as phone number in Summary was an old number from a previous residence. O: Vital signs stable except for persistent sinus tachycardia. Pain chart indicates 0, 0, 0, 0, 0, 0/10 intensity. No new labs today. Patient comfortable with pillows between her legs and under her knees. X-rays have shown acceptable position of R hip fracture, relatively stable with impalement of the base of the calcar into the intertrochanteric area. An old proximal left humerus impacted surgical neck fracture has no tenderness to palpation in that area. There is no use of that left upper extremity curled up from having a stroke. Patient has been non-ambulatory for more than a year. A: The patient has been and will continue to be maintained at non-ambulatory bed rest. The plan continues for non-operative management. Discussed all issues with daughter who has power of real estate attorney. Would recommend x-rays of right hip in 4 weeks to be sent to my office for review. Air bed or similar protocol to protect sacrum/hips from decubitii.
[2019-03-15] MEDS: ACETAMINOPHEN 500 MG TAB PO PRN (09:50)
[2019-03-15 09:51] VITALS: O2SAT 95
[2019-03-15] MEDS: POTASSIUM CL SA 10 MEQ TAB PO SCH (09:53)
[2019-03-15] MEDS: FUROSEMIDE 20 MG TABLET PO SCH (09:54)
[2019-03-15] MEDS: APIXABAN 5 MG TABLET PO SCH (09:55)
[2019-03-15] MEDS: ENSURE ENLIVE 237 ML CAN PO SCH (09:57)
[2019-03-15] MEDS: TRAMADOL HCL 50 MG TAB PO PRN (14:02)
[2019-03-15 16:07] VITALS: BP 147/66; TEMP 97.4
--- NOTE | 2019-03-15 16:19 | P.DS ---
Admission Date: 03/09/19 Discharge Date: 03/15/19 Disposition: TRANSFER TO SKILLED NURSING Discharge Condition: FAIR Reason for Admission: Hip fracture Consultations: Orthopedic surgery Brief History of Present Illness: The patient is a 78-year-old female, resident of nursing facility with past medical history of dementia, hypertension, history of DVT in the right left arm , on Eliquis, who was in her usual state of health until she complained of hip pain. The patient had an x-ray done from the nursing facility, was found to have a fracture of the right hip. There was no fall, likely is a pathologic fracture. 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 The patient's symptoms are constant, moderate, progressively worsening. Complains of pain on the right lower extremity, has some swelling. In the ER, her workup revealed elevated white blood cell count of 15.5. INR was elevated at 1.67. Imaging study including pelvis CT showed impacted right trochanteric fracture. The patient was then referred for admission. She was given pain medication. Head CT cervical spine was negative for any acute intracranial or cervical spine issue. She did have a type 1 atlantoaxial rotatory displacement. When seen in the ER, she was awake, alert, oriented to self, no family present at the bedside, did not complain of significant amount of pain. Hospital Course: Patient was admitted for nondisplaced right intratrochanteric fracture. Orthopedic surgery was consulted. No surgical intervention was planned as patient has been nonambulatory for over a year now. Her pain was controlled. She was provided with IV Rocephin for a urinary tract infection, and course completed. Patient was deemed a poor candidate for surgery, and patient was converted to DNR for a quality of life per medical [id number]. Patient was a resident of [facility], however per family, they did not want patient to return there. Her discharge was delayed for disposition/placement. Patient was then discharged in a safe and stable manner to [facility] once she was accepted. Overall, patient does remain a poor prognosis due to ambulatory status along with underlying dementia. She otherwise remained stable throughout the stay. Vital Signs/Physical Exam: Temp Pulse Resp BP Pulse Ox 97.4 F 104 H 20 147/66 H 95 03/15/19 16:00 03/15/19 16:00 03/15/19 16:00 03/15/19 16:00 03/15/19 16:00 General: Cachectic, Confused, Other (Elderly, ill appearing) HEENT: Atraumatic, PERRLA, EOMI Neck: Supple, JVD not distended Respiratory: Clear to auscultation bilaterally, Normal air movement Cardiovascular: Regular rate/rhythm, Normal S1 S2 Gastrointestinal: Normal bowel sounds, No tenderness Musculoskeletal: Contractures Neurological: Dementia Laboratory Data at Discharge: WBC 10.1 K/uL (4.3-10.9) D 03/13/19 06:08 Hgb 8.5 g/dL (12.0-15.0) L 03/13/19 06:08 Hct 26.0 % (36.0-45.0) L 03/13/19 06:08 Plt Count 179 K/uL (152-406) 03/13/19 06:08 PT 16.4 SECONDS (9.5-12.5) H 03/10/19 08:10 INR 1.41 03/10/19 08:10 APTT 32.5 SECONDS (24.3-36.9) 03/10/19 08:10 Sodium 141 mmol/L (136-145) 03/14/19 05:43 Potassium 4.5 mmol/L (3.5-5.1) 03/14/19 05:43 BUN 60 mg/dL (7-18) H 03/14/19 05:43 Creatinine 0.75 mg/dL (0.55-1.3) 03/14/19 05:43 Glucose 152 mg/dL (74-106) H 03/14/19 05:43 Magnesium 2.1 mg/dL (1.8-2.4) D 03/11/19 05:14 Total Bilirubin 0.3 mg/dL (0.2-1.0) 03/13/19 06:08 AST 25 U/L (15-37) 03/13/19 06:08 ALT 14 U/L (12-78) 03/13/19 06:08 Alkaline Phosphatase 74 U/L (45-117) 03/13/19 06:08 Home Medications: Acetaminophen [Tylenol] 650 mg PO Q4HP PRN 03/09/19 Apixaban [Eliquis *] 5 mg PO BID 03/09/19 Arginine/Ascorbate Sod/Billy AC [Arginaid Powder] 1 each PO BID 03/09/19 Ascorbic Acid 500 mg PO BID 03/09/19 Furosemide [Lasix*] 20 mg PO DAILY 03/09/19 Ipratropium/Albuterol Sulfate [Iprat-Albut 0.5-3(2.5) mg/3 ml] 3 ml IH Q6HP PRN 03/09/19 Multivitamin with Minerals [Multivitamins with Minerals] 1 each PO DAILY Nifedipine [Procardia] 20 mg PO TID 03/09/19 Nystatin Powder [Mycostatin (Powder)*] 1 appl TOP QSHIFT 03/09/19 Potassium Oral Tab [Klor-Con 10 mEq Tab*] 10 meq PO DAILY 03/09/19 Tramadol HCl [Ultram] 50 mg PO Q8HP PRN 03/09/19 Zinc Sulfate [Zinc Sulfate*] 220 mg PO BID 03/09/19 clonazePAM [Clonazepam] 1 mg PO BID 03/09/19 Patient Discharge Instructions: Please follow up with your primary care physician in 2-3 days. Please return to the ER for worsening symptoms. Diet: [facility] Time spent managing pt's care (in minutes): 45
--- NOTE | 2019-03-15 16:46 | P.PN ---
Date of Service: 03/15/19 S: Patient in great spirits visiting with sister, at ease and comfortable; O: Vital signs stable except for persistent sinus tachycardia. Pain chart indicates 0, 0, 0, 0, 8, 4/10 intensity. shifts summary indicates no signs of distress and no complaints of pain. Patient comfortable now with pillows between her legs and under her knees. X-rays have shown acceptable position of R hip fracture, relatively stable with impalement of the base of the calcar into the intertrochanteric area. An old proximal left humerus impacted surgical neck fracture has no tenderness to palpation in that area. There is no use of the left upper extremity secondary to having a stroke. Patient has been non-ambulatory for more than a year. A: The patient has been and will continue to be maintained at non-ambulatory bed rest. The plan continues for non-operative management. Would recommend x- rays of right hip in 4 weeks to be sent to my office for review. Air bed or similar protocol to protect sacrum/hips from decubitii.
== END 2019-03-15 17:54 | DRG 543 ==
LOC: ER 13:59 → ERHOLD 17:34 → 4TH 19:54
PROVIDERS: ADMIT Family Medicine; ATTEND Family Medicine
PROC: 30233K1 Transfusion of Nonautologous Frozen Plasma into Peripheral Vein, Percutaneous Approach (ICD-10-PCS; principal; 2019-03-10)
DX: M84.451A Pathological fracture, right femur, initial encounter for fracture (principal); S13.121A Dislocation of C1/C2 cervical vertebrae, initial encounter; N30.00 Acute cystitis without hematuria; D62 Acute posthemorrhagic anemia; Z66 Do not resuscitate; M84.422A Pathological fracture, left humerus, initial encounter for fracture; I69.398 Other sequelae of cerebral infarction; D63.8 Anemia in other chronic diseases classified elsewhere; D72.829 Elevated white blood cell count, unspecified; T80.89XA Other complications following infusion, transfusion and therapeutic injection, initial encounter; I95.2 Hypotension due to drugs; L27.0 Generalized skin eruption due to drugs and medicaments taken internally; T45.8X5A Adverse effect of other primarily systemic and hematological agents, initial encounter; J84.10 Pulmonary fibrosis, unspecified; G30.0 Alzheimer's disease with early onset; F02.80 Dementia in other diseases classified elsewhere, unspecified severity, without behavioral disturbance, psychotic disturbance, mood disturbance, and anxiety; I10 Essential (primary) hypertension; B96.89 Other specified bacterial agents as the cause of diseases classified elsewhere; M80.051A Age-related osteoporosis with current pathological fracture, right femur, initial encounter for fracture; Z79.01 Long term (current) use of anticoagulants; Z86.718 Personal history of other venous thrombosis and embolism; Z87.891 Personal history of nicotine dependence; X58.XXXA Exposure to other specified factors, initial encounter; Z96.641 Presence of right artificial hip joint
CPT/HCPCS: 36415; 36430; 51702; 70450; 71045; 72125; 72192; 80048; 80053; 80076; 81003; 81015; 82962; 83605; 83735; 84145; 85025; 85610; 85730; 86850; 86900; 86901; 87077; 87086; 87088; 87186; 93005; 94640; 94760; 96361; 96374; 99285; J0696; J2270; J2930; J7030; P9059